=== PATIENT | female | born 1960 | race Caucasian/White ===

== ENCOUNTER 2019-09-28 11:21 | Outpatient (CLI) | payer MEDICARE, SELFPAY ==
[2019-09-28 12:24] LABS: Basophils # 0.1 10^3/uL (0.0-0.1); Basophils % 1.3 %; Eosinophils # 0.4 10^3/uL (0.0-0.8); Eosinophils % 5.5 %; Hematocrit 33.3 % (37.0-47.0); Hemoglobin 8.9 g/dL (11.5-15.3); Lymphocytes # 1.2 10^3/uL (0.8-4.8); Mean Corpuscular HGB Conc 26.7 g/dL (30.0-36.0); Mean Corpuscular Hemoglobin 19.1 pg (28.0-34.0); Mean Corpuscular Volume 71.6 fL (81-99); Mean Platelet Volume 10.3 fL (7.4-10.4); Monocytes # 0.5 10^3/uL (0.2-0.9); Monocytes % 8.1 %; Neutrophils # 4.5 10^3/uL (1.8-7.7); Neutrophils % 66.7 %; Nucleated Red Blood Cells % 0 %; Platelet Count 386 10^3/cmm (130-400); Red Blood Count 4.65 10^6/uL (4.1-5.3); Red Cell Distribution Width 19.2 % (12.1-15.1); White Blood Count 6.7 10^3/uL (4.0-10.0)
== END 2019-09-28 11:22 | disposition home or self-care (01) ==
LOC: LAB 11:40
PROVIDERS: Family Provider Family Medicine; PCP Family Medicine; Visit Provider Family Medicine
DX: D50.0 Iron deficiency anemia secondary to blood loss (chronic) (principal)
CPT/HCPCS: 85025

== ENCOUNTER 2019-09-29 10:30 | Outpatient (CLI) | payer MEDICARE, SELFPAY ==
[2019-09-29 11:48] LABS: Ferritin 5 ng/mL (15-150); Iron 36 ug/dL (37-145); Percent Saturation 9.5 % (20-50); Total Iron Binding Capacity 378 mg/dL; Unsaturated Iron Binding 342 ug/dL (112-347)
== END 2019-09-29 10:31 | disposition home or self-care (01) ==
PROVIDERS: Family Provider Family Medicine; PCP Family Medicine; Visit Provider Family Medicine
DX: D50.9 Iron deficiency anemia, unspecified (principal)
CPT/HCPCS: 82728; 83540; 83550

== ENCOUNTER 2019-10-16 12:51 | Outpatient (CLI) | payer MEDICARE, SELFPAY ==
[2019-10-17 13:30] LABS: Basophils # 0.1 10^3/uL (0.0-0.1); Basophils % 1.1 %; Eosinophils # 0.4 10^3/uL (0.0-0.8); Hematocrit 38.2 % (37.0-47.0); Hemoglobin 9.9 g/dL (11.5-15.3); Lymphocytes # 1.3 10^3/uL (0.8-4.8); Lymphocytes % 18.5 %; Mean Corpuscular HGB Conc 25.9 g/dL (30.0-36.0); Mean Corpuscular Hemoglobin 19.4 pg (28.0-34.0); Mean Corpuscular Volume 74.8 fL (81-99); Monocytes # 0.5 10^3/uL (0.2-0.9); Monocytes % 6.5 %; Neutrophils # 4.9 10^3/uL (1.8-7.7); Neutrophils % 68.1 %; Nucleated Red Blood Cells % 0 %; Platelet Count 445 10^3/cmm (130-400); Red Blood Count 5.11 10^6/uL (4.1-5.3); Red Cell Distribution Width 21.1 % (12.1-15.1); White Blood Count 7.3 10^3/uL (4.0-10.0)
[2019-10-17 21:49] LABS: Absolute Eosinophils 0.1 10^3/cmm (0.0-0.7); Absolute Segmented Neutrophil 5.1 10/cmm (1.6-7.1); Eosinophils 2 %; Lymphocytes 18 %; Monocytes Absolute 0.1 10^3/cmm (0.1-0.6); Platelet Estimate Increased (Normal); Segmented Neutrophils 71 %; Total Cells Counted 100 (0-100)
[2019-10-17 21:50] LABS: Anisocytosis 1+; Giant Platelets Trace; Polychromasia 1+
== END 2019-10-16 12:52 | disposition home or self-care (01) ==
LOC: LAB 12:58
PROVIDERS: Family Provider Family Medicine; PCP Family Medicine; Visit Provider Internal Medicine Cardiovascular Disease
DX: Z79.01 Long term (current) use of anticoagulants (principal); Z95.2 Presence of prosthetic heart valve
CPT/HCPCS: 85007; 85025; 85027; 85610

== ENCOUNTER 2019-10-16 13:31 | Outpatient (CLI) | payer MEDICARE, SELFPAY ==
[2019-10-17 14:08] LABS: Hematocrit 38.2 % (37.0-47.0); Hemoglobin 9.9 g/dL (11.5-15.3); Mean Corpuscular HGB Conc 25.9 g/dL (30.0-36.0); Mean Corpuscular Hemoglobin 19.4 pg (28.0-34.0); Mean Corpuscular Volume 74.8 fL (81-99); Platelet Count 445 10^3/cmm (130-400); Red Blood Count 5.11 10^6/uL (4.1-5.3); Red Cell Distribution Width 21.1 % (12.1-15.1); White Blood Count 7.3 10^3/uL (4.0-10.0)
[2019-10-17 16:06] LABS: Absolute Eosinophils 0.2 10^3/cmm (0.0-0.7); Eosinophils 3 %; Lymphocytes 22 %; Monocytes Absolute 0.4 10^3/cmm (0.1-0.6); Segmented Neutrophils 69 %; Total Cells Counted 100 (0-100)
[2019-10-17 16:07] LABS: Anisocytosis 1+; Giant Platelets Trace; Ovalocytes 1+; Platelet Estimate Increased (Normal); Poikilocytosis 1+
== END 2019-10-16 13:32 | disposition home or self-care (01) ==
LOC: LAB 10-17 13:34
PROVIDERS: Family Provider Family Medicine; PCP Family Medicine; Visit Provider Family Medicine
DX: D50.8 Other iron deficiency anemias (principal)
CPT/HCPCS: 85007; 85027

== ENCOUNTER 2019-11-22 10:25 | Outpatient (CLI) | payer MEDICARE, SELFPAY ==
[2019-11-22 11:58] LABS: Basophils % 0.9 %; Eosinophils # 0.2 10^3/uL (0.0-0.8); Eosinophils % 5.2 %; Hematocrit 36.8 % (37.0-47.0); Hemoglobin 10.2 g/dL (11.5-15.3); Lymphocytes # 0.5 10^3/uL (0.8-4.8); Lymphocytes % 11.5 %; Mean Corpuscular HGB Conc 27.7 g/dL (30.0-36.0); Mean Corpuscular Hemoglobin 19.7 pg (28.0-34.0); Mean Corpuscular Volume 70.9 fL (81-99); Mean Platelet Volume 9.7 fL (7.4-10.4); Monocytes # 0.4 10^3/uL (0.2-0.9); Monocytes % 10.3 %; Neutrophils % 71.4 %; Nucleated Red Blood Cells % 0 %; Platelet Count 301 10^3/cmm (130-400); Red Blood Count 5.19 10^6/uL (4.1-5.3); Red Cell Distribution Width 22.3 % (12.1-15.1); White Blood Count 4.3 10^3/uL (4.0-10.0)
[2019-11-22 12:29] LABS: INR 3.23 (0.8-1.2)
== END 2019-11-22 10:26 | disposition home or self-care (01) ==
LOC: LAB 10:30
PROVIDERS: Family Provider Family Medicine; PCP Family Medicine; Visit Provider Family Medicine
DX: Z79.01 Long term (current) use of anticoagulants (principal); D50.8 Other iron deficiency anemias; Z95.2 Presence of prosthetic heart valve
CPT/HCPCS: 85025; 85610

== ENCOUNTER 2019-12-28 10:49 | Outpatient (CLI) | payer MEDICARE, SELFPAY ==
[2019-12-28 11:50] LABS: INR 4.75 (0.8-1.2)
== END 2019-12-28 10:50 | disposition home or self-care (01) ==
LOC: LAB 10:49
PROVIDERS: Family Provider Family Medicine; PCP Physician Assistant; Visit Provider Internal Medicine Cardiovascular Disease
DX: Z95.2 Presence of prosthetic heart valve (principal); Z79.01 Long term (current) use of anticoagulants
CPT/HCPCS: 36415; 85610

== ENCOUNTER 2020-01-05 10:57 | Outpatient (CLI) | payer MEDICARE, SELFPAY ==
[2020-01-05 11:38] LABS: INR 3.66 (0.8-1.2)
== END 2020-01-05 10:58 | disposition home or self-care (01) ==
LOC: LAB 11:03
PROVIDERS: Family Provider Family Medicine; PCP Physician Assistant; Visit Provider Internal Medicine Cardiovascular Disease
DX: Z95.2 Presence of prosthetic heart valve (principal); Z79.01 Long term (current) use of anticoagulants
CPT/HCPCS: 36415; 85610

== ENCOUNTER 2020-01-11 10:49 | Outpatient (CLI) | payer MEDICARE, SELFPAY ==
[2020-01-11 13:20] LABS: INR 3.07 (0.8-1.2)
== END 2020-01-11 10:50 | disposition home or self-care (01) ==
LOC: LAB 10:49
PROVIDERS: Family Provider Family Medicine; PCP Physician Assistant; Visit Provider Internal Medicine Cardiovascular Disease
DX: Z95.2 Presence of prosthetic heart valve (principal); Z79.01 Long term (current) use of anticoagulants
CPT/HCPCS: 36415; 85610

== ENCOUNTER 2020-01-25 11:06 | Outpatient (CLI) | payer MEDICARE, SELFPAY ==
[2020-01-25 11:46] LABS: INR 3.55 (0.8-1.2)
== END 2020-01-25 11:07 | disposition home or self-care (01) ==
LOC: LAB 11:10
PROVIDERS: PCP Physician Assistant; Visit Provider Internal Medicine Cardiovascular Disease
DX: Z95.2 Presence of prosthetic heart valve (principal); Z79.01 Long term (current) use of anticoagulants
CPT/HCPCS: 36415; 85610

== ENCOUNTER 2020-02-08 13:23 | Outpatient (CLI) | payer MEDICARE, SELFPAY | END 2020-02-08 13:24 | disposition home or self-care (01) | LOC: LAB 13:23 | PROVIDERS: PCP Physician Assistant; Visit Provider Internal Medicine Cardiovascular Disease | DX: Z95.2 Presence of prosthetic heart valve (principal); Z79.01 Long term (current) use of anticoagulants | CPT/HCPCS: 36415; 85610 ==

== ENCOUNTER 2020-03-07 11:15 | Outpatient (CLI) | payer MEDICARE, SELFPAY | END 2020-03-07 11:16 | disposition home or self-care (01) | LOC: LAB 11:22 | PROVIDERS: PCP Physician Assistant; Visit Provider Internal Medicine Cardiovascular Disease | DX: Z95.2 Presence of prosthetic heart valve (principal); Z79.01 Long term (current) use of anticoagulants | CPT/HCPCS: 85610 ==

== ENCOUNTER 2020-05-16 12:48 | Outpatient (CLI) | payer MEDICARE, SELFPAY ==
[2020-05-16 13:36] LABS: INR 1.22 (0.8-1.2)
== END 2020-05-16 12:49 | disposition home or self-care (01) ==
LOC: LAB 12:53
PROVIDERS: PCP Physician Assistant; Visit Provider Internal Medicine Cardiovascular Disease
DX: Z95.2 Presence of prosthetic heart valve (principal); Z79.01 Long term (current) use of anticoagulants
CPT/HCPCS: 36415; 85610

== ENCOUNTER 2020-05-20 08:32 | Outpatient (CLI) | payer MEDICARE, SELFPAY | END 2020-05-20 08:33 | disposition home or self-care (01) | LOC: LAB 08:34 | PROVIDERS: PCP Physician Assistant; Visit Provider Internal Medicine Cardiovascular Disease | DX: Z95.2 Presence of prosthetic heart valve (principal); Z79.01 Long term (current) use of anticoagulants | CPT/HCPCS: 36415; 85610 ==

== ENCOUNTER 2020-05-29 11:27 | Outpatient (RCR) | payer MEDICARE, SELFPAY ==
[2020-05-23 09:56] LABS: INR 3.02 (0.8-1.2)
[2020-05-29 12:32] LABS: INR 2.72 (0.8-1.2)
== END 2020-06-19 23:59 | disposition home or self-care (01) ==
LOC: LAB 11:27
PROVIDERS: PCP Physician Assistant; Visit Provider Internal Medicine Cardiovascular Disease
DX: Z95.2 Presence of prosthetic heart valve (principal); Z79.01 Long term (current) use of anticoagulants
CPT/HCPCS: 36415; 85610

== ENCOUNTER 2020-06-27 11:01 | Outpatient (RCR) | payer MEDICARE, SELFPAY ==
[2020-06-27 14:08] LABS: INR 2.86 (0.8-1.2)
== END 2020-07-20 23:59 | disposition home or self-care (01) ==
LOC: LAB 11:01
PROVIDERS: PCP Physician Assistant; Visit Provider Internal Medicine Cardiovascular Disease
DX: Z95.2 Presence of prosthetic heart valve (principal); Z79.01 Long term (current) use of anticoagulants
CPT/HCPCS: 85610

== ENCOUNTER 2020-07-25 10:00 | Outpatient (RCR) | payer MEDICARE, SELFPAY ==
[2020-07-25 10:42] LABS: INR 2.41 (0.8-1.2)
== END 2020-08-19 23:59 | disposition home or self-care (01) ==
LOC: LAB 10:00
PROVIDERS: PCP Physician Assistant; Visit Provider Internal Medicine Cardiovascular Disease
DX: Z95.2 Presence of prosthetic heart valve (principal); Z79.01 Long term (current) use of anticoagulants
CPT/HCPCS: 36415; 85610

== ENCOUNTER 2020-08-27 11:29 | Outpatient (RCR) | payer MEDICARE, OTHER, SELFPAY ==
[2020-08-27 13:02] LABS: INR 2.69 (0.8-1.2)
[2020-08-27 13:18] LABS: Anion Gap 15.3 (5-19); Blood Urea Nitrogen 23 mg/dL (8-23); Calcium 9.3 mg/dL (8.5-10.5); Carbon Dioxide 25 mmol/L (22-29); Chloride 103 mmol/L (98-107); Glomerular Filtration Rate 45.5 mL/min (90-130); Glucose 96 mg/dL (65-115); NT Pro B Type Natriuretic Pept 863 pg/mL (0-125); Osmolality Calculated 292 mOsm/kg (285-295); Potassium 4.3 mmol/L (3.5-5.1); Sodium 139 mmol/L (136-145)
== END 2020-09-19 23:59 | disposition home or self-care (01) ==
LOC: LAB 11:29
PROVIDERS: PCP Physician Assistant; Visit Provider Internal Medicine Cardiovascular Disease
DX: I50.32 Chronic diastolic (congestive) heart failure (principal); Z95.2 Presence of prosthetic heart valve; R60.0 Localized edema; I48.91 Unspecified atrial fibrillation; D50.8 Other iron deficiency anemias
CPT/HCPCS: 80048; 83880; 85610

== ENCOUNTER 2020-10-17 10:27 | Outpatient (RCR) | payer MEDICARE, OTHER, SELFPAY ==
[2020-10-07 10:26] LABS: INR 2.04 (0.8-1.2)
[2020-10-11 12:54] LABS: INR 2.17 (0.8-1.2)
== END 2020-10-20 23:59 | disposition home or self-care (01) ==
LOC: LAB 10:27
PROVIDERS: PCP Physician Assistant; Visit Provider Internal Medicine Cardiovascular Disease
DX: Z95.2 Presence of prosthetic heart valve (principal); Z79.01 Long term (current) use of anticoagulants
CPT/HCPCS: 36415; 85610

== ENCOUNTER 2020-11-11 11:22 | Outpatient (RCR) | payer MEDICARE, OTHER, SELFPAY ==
[2020-10-21 14:35] LABS: INR 2.15 (0.8-1.2)
[2020-11-01 11:23] LABS: INR 2.52 (0.8-1.2)
[2020-11-11 12:07] LABS: INR 2.75 (0.8-1.2)
== END 2020-11-17 23:59 | disposition home or self-care (01) ==
LOC: LAB 11:22
PROVIDERS: PCP Physician Assistant; Visit Provider Internal Medicine Cardiovascular Disease
DX: Z95.2 Presence of prosthetic heart valve (principal); Z79.01 Long term (current) use of anticoagulants; Z01.812 Encounter for preprocedural laboratory examination
CPT/HCPCS: 36415; 85610; 87635

== ENCOUNTER → 2020-11-13 11:30 | Outpatient (BNVA) | payer MEDICARE, OTHER, SELFPAY | PROVIDERS: PCP Physician Assistant; Visit Provider Internal Medicine Critical Care Medicine | DX: R06.02 Shortness of breath (principal) | CPT/HCPCS: 87635 ==

== ENCOUNTER 2020-11-19 08:58 | Outpatient (CLI) | payer MEDICARE, OTHER, SELFPAY ==
--- NOTE | 2020-11-19 14:00 | PFTS_ITS ---
Date of Study:11/19/20 Date of Dictation: 11/22/2020 MECHANICS: Prebronchodilator forced vital capacity (FVC) is reduced. Prebronchodilator forced expiratory volume in one second (FEV1) is reduced 62%. FEV1/FVC is normal. No postbronchodilator study. FLOW VOLUME LOOP: Normal . LUNG VOLUMES: Total lung capacity (TLC) is reduced 74%. Residual volume (RV) is normal. DIFFUSING CAPACITY FOR CARBON MONOXIDE: Moderately reduced 46% . INTERPRETATION: The spirometry and is a low TLC are consistent with restrictive lung disease. Moderate gas transfer defect. please correlate clinically MTDD
== END 2020-11-19 08:59 | disposition home or self-care (01) ==
LOC: RT 08:58
PROVIDERS: PCP Physician Assistant; Visit Provider Internal Medicine Critical Care Medicine
DX: R06.02 Shortness of breath (principal)
CPT/HCPCS: 94010; 94726; 94729

== ENCOUNTER 2020-11-25 09:42 | Outpatient (RCR) | payer MEDICARE, OTHER, SELFPAY ==
[2020-11-25 10:25] LABS: Basophils # 0.1 10^3/uL (0.0-0.1); Basophils % 1.6 %; Eosinophils # 0.4 10^3/uL (0.0-0.8); Eosinophils % 6.2 %; Hematocrit 37.1 % (37.0-47.0); Hemoglobin 10.1 g/dL (11.5-15.3); Lymphocytes # 1.3 10^3/uL (0.8-4.8); Lymphocytes % 20.7 %; Mean Corpuscular HGB Conc 27.2 g/dL (30.0-36.0); Mean Corpuscular Hemoglobin 19.8 pg (28.0-34.0); Mean Corpuscular Volume 72.9 fL (81-99); Mean Platelet Volume 10.2 fL (7.4-10.4); Monocytes # 0.5 10^3/uL (0.2-0.9); Monocytes % 8.1 %; Neutrophils # 3.86 10^3/uL (1.8-7.7); Neutrophils % 62.7 %; Nucleated Red Blood Cells % 0 %; Platelet Count 324 10^3/cmm (130-400); Red Blood Count 5.09 10^6/uL (4.1-5.3); Red Cell Distribution Width 19.2 % (12.1-15.1); White Blood Count 6.2 10^3/uL (4.0-10.0)
[2020-11-25 10:32] LABS: INR 2.95 (0.8-1.2)
[2020-11-25 10:42] LABS: Iron 19 ug/dL (37-145); Total Iron Binding Capacity 373 mcg/dl; Unsaturated Iron Binding 354 ug/dL (112-347)
== END 2020-12-18 23:59 | disposition home or self-care (01) ==
LOC: LAB 09:42
PROVIDERS: Internal Medicine Critical Care Medicine; PCP Physician Assistant; Visit Provider Internal Medicine Cardiovascular Disease
DX: I50.32 Chronic diastolic (congestive) heart failure (principal); R60.0 Localized edema; R06.00 Dyspnea, unspecified; I48.91 Unspecified atrial fibrillation; Z95.2 Presence of prosthetic heart valve; Z79.01 Long term (current) use of anticoagulants
CPT/HCPCS: 36415; 83540; 83550; 85025; 85610

== ENCOUNTER 2020-12-03 10:25 | Outpatient (CLI) | payer MEDICARE, OTHER, SELFPAY ==
--- NOTE | 2020-12-03 10:45 | FL_ITS ---
WS: [id number] FLUOROSCOPIC GUIDED SNIFF TEST INDICATION: SHORTNESS OF BREATH Fluoroscopy time 0.6 FINDINGS: Normal excursion of the hemidiaphragms with inspiration and expiration. No evidence of phre venu nerve paralysis. Mild elevation right hemidiaphragm on resting. Sternotomy. AVR. Outside CT dated August 19, 2020. Multiple large hepatic cysts partially visualized similar in appe arance to CT chest .Largest right hepatic cyst measures 6.9 x 6.8 x 7.3 cm Slightly increased in size compared to when it measured 6.5 x 6.1 x 6.9 cm. FL/FL sniff test [id number] IMPRESSION: Normal sniff test
== END 2020-12-03 10:26 | disposition home or self-care (01) ==
LOC: RAD 10:27
PROVIDERS: PCP Physician Assistant; Visit Provider Internal Medicine Critical Care Medicine
DX: R06.02 Shortness of breath (principal)
CPT/HCPCS: 76000

== ENCOUNTER 2020-12-03 11:00 | Outpatient (CLI) | payer MEDICARE, OTHER, SELFPAY | END 2020-12-03 11:01 | disposition home or self-care (01) | PROVIDERS: PCP Physician Assistant; Visit Provider Internal Medicine Critical Care Medicine | DX: J98.4 Other disorders of lung (principal); R06.02 Shortness of breath | CPT/HCPCS: 76000; 94762 ==

== ENCOUNTER 2020-12-05 08:21 | Outpatient (CLI) | payer MEDICARE, OTHER, SELFPAY ==
[2020-12-05 09:18] LABS: Basophils # 0.1 10^3/uL (0.0-0.1); Basophils % 1.5 %; Eosinophils # 0.6 10^3/uL (0.0-0.8); Eosinophils % 7.4 %; Hematocrit 38.5 % (37.0-47.0); Hemoglobin 10.3 g/dL (11.5-15.3); Lymphocytes # 1.3 10^3/uL (0.8-4.8); Lymphocytes % 17.5 %; Mean Corpuscular HGB Conc 26.8 g/dL (30.0-36.0); Mean Corpuscular Hemoglobin 19.8 pg (28.0-34.0); Mean Corpuscular Volume 73.9 fL (81-99); Mean Platelet Volume 10.3 fL (7.4-10.4); Monocytes # 0.6 10^3/uL (0.2-0.9); Neutrophils # 4.82 10^3/uL (1.8-7.7); Neutrophils % 65.2 %; Nucleated Red Blood Cells % 0 %; Platelet Count 374 10^3/cmm (130-400); Red Blood Count 5.21 10^6/uL (4.1-5.3); Red Cell Distribution Width 19.5 % (12.1-15.1); White Blood Count 7.4 10^3/uL (4.0-10.0)
--- NOTE | 2020-12-05 18:42 | ONC FU_ITS ---
Dr. Valerio follow up note Patient: Bree Hendricks Unit #: [id number]: 1960 Dicatated By: Panfilo Valerio M.D.Date of Visit:Dec 05, 2020 Onc Med Follow-up/Prog Note History of Present Illness: Ms. Bree Hendricks, is a 60-year-old female with a history of iron deficiency anemia about 10 to 15 years ago, as per patient at that time she was given oral iron which she took for 1 month with that her anemia resolved. And then again 1 time her stools were positive for occult blood, Dr. Bowling give her prescription for antibiotic with that her stool cleared., Since then no issues with her blood/hemoglobin until recently when her follow-up labs done on November 25, 2020 shows progressive anemia, her hemoglobin was 10.1 g with hematocrit 37.1 MCV 72.9 white blood count 6.2 platelets 324,000, anemia work-up showed iron saturation 5%, iron 19, TIBC 373 INR 2.95 patient is on Coumadin for history of A. fib and mitral valve replacement. Patient denies any melena or hematochezia, denies any hemoptysis or hematemesis denies any dysuria or hematuria denies any jaundice denies any night sweats denies any weight loss denies any recurrent fever denies any peripheral lymphadenopathy or abdominal fullness., Denies any palpitation or shortness of breath at rest Her past medical history significant for A. fib, aortic valve replacement, mitral valve replacement, cholecystectomy, hypothyroidism Patient is a former smoker, denies alcohol use Medications: Coumadin (3 mg) Tablet Oral Take as Directed, Furosemide 1 Tablet (of 20 mg) Oral daily, Levo-T 1 Tablet (of 100 mcg) Oral every am, Potassium Chloride ER (20 meq) Tablet, controlled release Oral Take as Directed Allergies: Amoxicillin and Cephalexin. Review of Systems: Review of Systems is not available for this patient. Vital Signs: Performed on Dec 05, 2020 11:17 Weight - 196 lbs (HIGH) BSA - sq.m BMI - 0.00 (LOW) Temperature - 96.6 F (LOW) Pulse - 107 /min (HIGH) Respiration - 18 /min BP - 182/72 mm(hg) (HIGH) O2 Sat - 96 % Pain - 0 Fatigue - 6 Performance Status: 1 - No physically strenuous activity, but ambulatory and able to carry out light or sedentary work (e.g. office work, light house work). (ECOG) Physical Examination: ENMT - No mouth sores, no thrush, no jaundice, Respiratory - Poor air entry otherwise clear, Cardiovascular - Irregular rate and rhythm, Abdomen - Soft, bowel sounds present, Extremities - No visible edema. Lab/Imaging: Most recent lab results are not available for this patient. Impression: Microcytic hypochromic anemia due to iron deficiency etiology probably multifactorial including chronic GI blood loss patient is on anticoagulation or iron malabsorption Atrial fibrillation, on Coumadin History of aortic valve/mitral valve replacement Plan: With patient regarding her labs white blood count 7.4 hemoglobin 10.3 hematocrit 38.5 platelets 374,000 MCV 73.9 Clinically, patient doing reasonably well, now with well compensated moderate iron deficiency anemia, will consider oral iron twice a day and then she will return to clinic in 1 month with CBC and iron studies In the meantime we will refer her to Dr. Lewis for EGD and colonoscopy to rule out GI pathology and source of chronic bleeding, patient never had GI endoscopic evaluation done in the past. Return to clinic in 1 month with CBC and iron studies Signed By: Panfilo Valerio M.D. <<Signature on File>>
== END 2020-12-05 08:22 | disposition home or self-care (01) ==
PROVIDERS: PCP Physician Assistant; Visit Provider Internal Medicine Hematology & Oncology
DX: D50.0 Iron deficiency anemia secondary to blood loss (chronic) (principal); I48.91 Unspecified atrial fibrillation; Z95.2 Presence of prosthetic heart valve; Z79.01 Long term (current) use of anticoagulants; Z79.899 Other long term (current) drug therapy
CPT/HCPCS: 36415; 85025; 99205

== ENCOUNTER 2020-12-24 10:21 | Outpatient (RCR) | payer MEDICARE, OTHER, SELFPAY ==
[2020-12-24 11:02] LABS: INR 2.54 (0.8-1.2)
[2020-12-24 11:17] LABS: Thyroid Stimulating Hormone 3.27 uIU/mL (0.27-4.20)
== END 2021-01-17 23:59 | disposition home or self-care (01) ==
LOC: LAB 10:21
PROVIDERS: Internal Medicine Cardiovascular Disease; PCP Physician Assistant; Visit Provider Physician Assistant
DX: E03.9 Hypothyroidism, unspecified (principal); Z95.2 Presence of prosthetic heart valve; Z79.01 Long term (current) use of anticoagulants
CPT/HCPCS: 36415; 84443; 85610

== ENCOUNTER 2021-01-16 11:05 | Outpatient (CLI) | payer MEDICARE, OTHER, SELFPAY ==
[2021-01-16 11:42] LABS: Basophils # 0.1 10^3/uL (0.0-0.1); Basophils % 1.3 %; Eosinophils # 0.3 10^3/uL (0.0-0.8); Hematocrit 44.4 % (37.0-47.0); Hemoglobin 13.4 g/dL (11.5-15.3); Lymphocytes # 1.4 10^3/uL (0.8-4.8); Lymphocytes % 18.1 %; Mean Corpuscular HGB Conc 30.2 g/dL (30.0-36.0); Mean Corpuscular Hemoglobin 24.4 pg (28.0-34.0); Mean Corpuscular Volume 80.9 fL (81-99); Mean Platelet Volume 10.2 fL (7.4-10.4); Monocytes # 0.6 10^3/uL (0.2-0.9); Neutrophils # 5.08 10^3/uL (1.8-7.7); Neutrophils % 68.2 %; Nucleated Red Blood Cells % 0 %; Platelet Count 308 10^3/cmm (130-400); Red Blood Count 5.49 10^6/uL (4.1-5.3); White Blood Count 7.5 10^3/uL (4.0-10.0)
[2021-01-16 12:31] LABS: Ferritin 33 ng/mL (15-150); Iron 44 ug/dL (37-145); Percent Saturation 12.9 % (20-50); Total Iron Binding Capacity 341 mcg/dl; Unsaturated Iron Binding 297 ug/dL (112-347); Vitamin B12 522 pg/mL (232-1245)
[2021-01-16 12:43] LABS: Folate Level 9.1 ng/mL (4.8-37.3)
[2021-01-16 12:46] LABS: Add RBC Morph No; Slide Review Slide Review Perform
--- NOTE | 2021-01-21 10:06 | ONC FU_ITS ---
Dr. aVlerio follow up note Patient: Bree Hendricks Unit #: [id number]: 1960 Dicatated By: Panfilo Valerio M.D.Date of Visit:Jan 16, 2021 Onc Med Follow-up/Prog Note History of Present Illness: Ms. Bree Hendricks, is a 60-year-old female with a history of iron deficiency anemia about 10 to 15 years ago, as per patient at that time she was given oral iron which she took for 1 month with that her anemia resolved. And then again 1 time her stools were positive for occult blood, Dr. Bowilng give her prescription for antibiotic with that her stool cleared., Since then no issues with her blood/hemoglobin until recently when her follow-up labs done on November 25, 2020 shows progressive anemia, her hemoglobin was 10.1 g with hematocrit 37.1 MCV 72.9 white blood count 6.2 platelets 324,000, anemia work-up showed iron saturation 5%, iron 19, TIBC 373 INR 2.95 patient is on Coumadin for history of A. fib and mitral valve replacement. Patient denies any melena or hematochezia, denies any hemoptysis or hematemesis denies any dysuria or hematuria denies any jaundice denies any night sweats denies any weight loss denies any recurrent fever denies any peripheral lymphadenopathy or abdominal fullness., Denies any palpitation or shortness of breath at rest Her past medical history significant for A. fib, aortic valve replacement, mitral valve replacement, cholecystectomy, hypothyroidism Patient is a former smoker, denies alcohol use Came for follow-up, denies any specific complaints, no fever chills, no nausea or vomiting, no diarrhea constipation, tolerating oral iron well. No melena or hematochezia, no hemoptysis or hematemesis, no hematuria, patient was referred to Dr. Lewis for colonoscopy and EGD, patient declined because she is on Coumadin, as per patient she did talk to her senior technical manager, who said as long as no biopsy or polypectomy is considered she can proceed with colonoscopy while on anticoagulation Medications: Coumadin (3 mg) Tablet Oral Take as Directed, Furosemide 1 Tablet (of 20 mg) Oral daily, Levo-T 1 Tablet (of 100 mcg) Oral every am, Potassium Chloride ER (20 meq) Tablet, controlled release Oral Take as Directed Allergies: Amoxicillin and Cephalexin. Review of Systems: Review of Systems is not available for this patient. Vital Signs: Performed on Jan 16, 2021 12:50 Weight - 195.6 lbs (LOW) BSA - 0.00 sq.m BMI - 0.00 Temperature - 98.0 F (LOW) Pulse - 80 /min Respiration - 18 /min BP - 130/90 mm(hg) O2 Sat - 96 % Pain - 0 Fatigue - 4 Performance Status: 0 - Fully active, able to carry on all predisease activities without restrictions. (ECOG) Physical Examination: ENMT - No mouth sores, no thrush, no jaundice, Respiratory - Lungs are clear to auscultation, Cardiovascular - Regular rate and rhythm of heart, Abdomen - , Soft, bowel sounds present, Extremities - No visible edema. Lab/Imaging: Most recent lab results are not available for this patient. Impression: Microcytic hypochromic anemia due to iron deficiency etiology probably multifactorial including chronic GI blood loss patient is on anticoagulation or iron malabsorption On oral iron Atrial fibrillation, on Coumadin History of aortic valve/mitral valve replacement Plan: Discussed with patient regarding her labs white blood count 7.5 hemoglobin 13.4 g compared to 10.3 g on December 05, 2020 hematocrit 44.4 platelets 308,000 iron studies shows iron saturation 12.9 compared to 5% previously, iron 44 compared to 19 previously and ferritin 33 Clinically, patient is doing well, tolerating oral iron well, her follow-up lab work-up shows excellent response to oral iron her hemoglobin has improved to 13.4 g compared to 10.3 g previously and her iron studies shows improvement in iron stores as well, will continue with oral iron and then she will return to clinic in 1 month with CBC and iron studies to ensure improvement in hemoglobin as well as iron stores Patient was advised to consider EGD and colonoscopy to rule out any GI malignancy causing chronic GI blood loss, if normal, we may consider capsule endoscopy to rule out small bowel AVMs causing chronic blood loss. Signed By: Panfilo Valerio M.D. <<Signature on File>>
== END 2021-01-16 11:06 | disposition home or self-care (01) ==
PROVIDERS: PCP Physician Assistant; Visit Provider Internal Medicine Hematology & Oncology
DX: D50.0 Iron deficiency anemia secondary to blood loss (chronic) (principal); D51.9 Vitamin B12 deficiency anemia, unspecified; K90.9 Intestinal malabsorption, unspecified; I48.20 Chronic atrial fibrillation, unspecified; I08.0 Rheumatic disorders of both mitral and aortic valves; Z79.899 Other long term (current) drug therapy
CPT/HCPCS: 36415; 82607; 82728; 82746; 83540; 83550; 85025; 99214

== ENCOUNTER 2021-01-23 09:07 | Outpatient (RCR) | payer MEDICARE, OTHER, SELFPAY ==
[2021-01-23 09:57] LABS: INR 2.88 (0.8-1.2)
== END 2021-02-17 23:59 | disposition home or self-care (01) ==
LOC: LAB 09:07
PROVIDERS: PCP Physician Assistant; Visit Provider Internal Medicine Cardiovascular Disease
DX: I50.32 Chronic diastolic (congestive) heart failure (principal); R60.0 Localized edema; R06.00 Dyspnea, unspecified; I48.91 Unspecified atrial fibrillation; Z95.2 Presence of prosthetic heart valve
CPT/HCPCS: 36415; 85610

== ENCOUNTER 2021-03-12 10:07 | Outpatient (RCR) | payer MEDICARE, OTHER, SELFPAY ==
[2021-02-24 11:06] LABS: INR 2.43 (0.8-1.2)
[2021-03-12 10:54] LABS: INR 2.97 (0.8-1.2)
== END 2021-03-19 23:59 | disposition home or self-care (01) ==
LOC: LAB 10:07
PROVIDERS: PCP Physician Assistant; Visit Provider Internal Medicine Cardiovascular Disease
DX: Z79.01 Long term (current) use of anticoagulants (principal); Z95.2 Presence of prosthetic heart valve
CPT/HCPCS: 36415; 85610

== ENCOUNTER → 2021-03-28 11:49 | Outpatient (BNVA) | payer MEDICARE, OTHER, SELFPAY | PROVIDERS: PCP Physician Assistant; Visit Provider Surgery | DX: Z11.52 Encounter for screening for COVID-19 (principal); L98.9 Disorder of the skin and subcutaneous tissue, unspecified | CPT/HCPCS: 87635 ==

== ENCOUNTER 2021-04-02 07:25 | Day surgery (SDC) | payer MEDICARE, OTHER, SELFPAY ==
[2021-04-01 17:33] VITALS: BMI 28.7
[2021-04-02] VITALS (8 sets, daily range): BP systolic 104–142; BP diastolic 57–78; PULSE 62–82; RESP 14–18; TEMP 36.1–36.9; O2SAT 92–96
[2021-04-02] MEDS: sodium chloride 0.9% 1,000 ML 30 ML IV (08:31)
[2021-04-02 08:44] LABS: INR 1.49 (0.8-1.2)
[2021-04-02 08:55] LABS: Anion Gap 12.9 (5-19); Blood Urea Nitrogen 10 mg/dL (8-23); Calcium 8.6 mg/dL (8.5-10.5); Carbon Dioxide 24 mmol/L (22-29); Chloride 110 mmol/L (98-107); Creatinine Clr Calc Pharmacy 58.6243; Glomerular Filtration Rate 56.2 mL/min (90-130); Glucose 118 mg/dL (65-115); Osmolality Calculated 296 mOsm/kg (285-295); Potassium 3.9 mmol/L (3.5-5.1); Sodium 143 mmol/L (136-145)
--- NOTE | 2021-04-02 10:09 | ANES.PREANE2 ---
Pre-Anesthetic Assessment Pre-Anesthetic Assessment: Height/Weight: Height 1.64 m Weight 77.111 kg Temp Pulse Resp BP Pulse Ox 98.5 F 82 18 141/77 95 04/02/21 08:06 04/02/21 08:06 04/02/21 08:06 04/02/21 08:06 04/02/21 08:06 Preop Diagnosis: panendoscopy Proposed Procedure: Operation Date: 04/02/21 09:00 Proposed Procedures p Colonoscopy(Not Applicable) - Wilder Lewis MD s EXCISION OF SKIN LESION OF THIGH 63335 L98.9(Bilateral) - Wilder Lewis MD Was Beta Isabel taken within 24 hours: N/A Was Clonidine taken within 24 hours: N/A Last intake: Intake Last Liquid Date 04/01/21 Last Liquid Time 22:30 Last Solid Date 04/01/21 Last Solid Time 21:00 Social: Social History: No alcohol and No tobacco Exam: Pre-Anes Outpt Exam: alert, oriented x 3, clear to auscultation bilaterally and regular rate & rhythm Airway: Submandibular: WNL Cervical ROM: WNL MP: 3 Dentition: Full CV/HEM: CV/HEM: Anemia Comments: h/o AVR and MVR (related to rheumatic dz) Musc/skel: Musc/skel: Weakness Comments: Left weakness Neuropsych: Neuropsych: CVA and Deficit Anesthetic Plan: ASA status: 3 Anesthesia: MAC Risk of > 500 ml blood loss (7ml/kg in children): No Meds/Allergies Current Medications: Current Medications Generic Name Dose Route Start Last Admin Trade Name Freq PRN Reason Stop Dose Admin Sodium Chloride 1,000 mls @ 30 ml s/hr 04/02/21 07:45 04/02/21 08:31 Sodium Chloride 0.9% IV 04/03/21 07:44 30 mls/hr .Q24H MEREDITH Administration PFSH Anesthesia PFSH: Medical History (Updated 12/31/20 @ 16:01 by Wilder Lewis MD) Afib CHF (congestive heart failure) CVA (cerebral vascular accident) Hypothyroidism Iron deficiency anemia secondary to inadequate dietary iron intake URI (upper respiratory infection) Surgical History (Updated 12/31/20 @ 16:07 by Wilder Lewis MD) H/O aortic valve replacement H/O mitral valve replacement H/O tubal ligation Hx laparoscopic cholecystectomy Hx of tonsillectomy S/P nasal surgery Nasoendoscopy Social History Smoking and tobacco status: never smoked Quit status (tobacco): has quit using tobacco Year quit tobacco: 2005 [id number] Second hand smoke exposure: No Smoking risk assessment/counseling performed?: Yes Alcohol intake: never Caregiver/support person: No Lives independently: Yes Household members: spouse Housing: Assisted Living Facility Marital status: Current occupational status: disabled Pets and animals: Yes History of recent travel: No Current gender identity: Female Data Anesthesia CBC & Chem 7: 04/02/21 08:21 Other Labs: Laboratory Results - last 48 hr 04/02/21 04/02/21 08:21 08:21 PT 18.40 H INR 1.49 H Sodium 143 Potassium 3.9 Chloride 110 H Carbon Dioxide 24 Anion Gap 12.9 BUN 10 Creatinine 1.0 H GFR Calculation 56.2 L Glucose 118 H Calculated Osmolality 296 H Calcium 8.6 Cardiac Studies: No Data to Display
--- NOTE | 2021-04-02 10:18 | W.PM.OPSUD ---
Surgery/Procedure H&P Update DATE OF PROCEDURE: April 02, 2021 DATE H&P PERFORMED: 03/28/21 H&P UPDATE INFORMATION: I have reviewed H&P completed within last 30 days, I have examined patient prior to procedure and No changes to prior documentation PREOP DIAGNOSIS: panendoscopy PLANNED PROCEDURE: Operation Date: 04/02/21 09:00 Proposed Procedures p Colonoscopy(Not Applicable) - Wilder Lewis MD s EXCISION OF SKIN LESION OF THIGH 65823 L98.9(Bilateral) - Wilder Lewis MD
[2021-04-02] MEDS: vancomycin 1,000 MG in sodium chloride 0.9% 250 ML 250 MG IV (11:25)
[2021-04-02] MEDS: neomycin-poly-bacitracin oint 28 gm 1 APPLIC TOPICAL (12:38)
--- NOTE | 2021-04-02 13:00 | PM.OP ---
Operative Report Date of procedure: April 02, 2021 Pre-op Diagnosis: Iron deficiency anemia Pre-op Diagnosis: 1. Iron deficiency anemia 2. Verrucas skin lesion medial aspect of left thigh 3. Verrucas skin lesion medial aspect of right thigh Post-op Findings: Antral gastric ulcers measuring 5 mm to 1 cm, no active bleeding Internal hemorrhoids 1.5 cm pedunculated polyp sigmoid colon 1 cm sessile polyp descending colon 5 mm sessile polyp ascending colon 2 x 2 cm skin lesion right thigh 3 x 3 cm skin lesion left thigh Procedure Done: Esophagogastroduodenoscopy with biopsy Colonoscopy with polypectomy using hot snare x3 Excision skin lesion right thigh measuring 2 x 2 cm Excision skin lesion left thigh measuring 3 x 3 cm Specimens removed/disposition: 1. Gastric antral biopsy for H. pylori 2. Sigmoid polyp 3. Descending colon polyp 4. Ascending colon polyp 5. Right thigh skin lesion 6. Left thigh skin lesion Surgeon: Wilder Lewis Anesthesia: MAC Condition: stable Disposition: PACU Procedure: The patient was taken to the operating room and placed in left lateral position under MAC and a bite block was placed. A gastroscope was introduced and advanced up to second portion of the duodenum and slowly withdrawn. Duodenum second portion: Normal Duodenal bulb: Normal Stomach Fundus: Normal body: Normal Antrum: 5 mm - 1 cm gastric ulcers biopsied with cold biopsy forceps Pylorus: Normal Esophagus GE junction: Z-line at 40 cm Rest of esophagus: Normal A digital rectal exam revealed small internal hemorrhoids. The colonoscope was introduced and advanced up to cecum with ileocecal valve and appendicular orifice was visualized. The colon prep was fair. Cecum: Normal Ascending colon: 5 mm sessile polyp removed with a hot snare Transverse colon: Normal Descending colon: 1 cm sessile polyp removed with a hot snare Sigmoid colon: 1.5 cm sessile polyp removed with hot snare Rectum: Internal hemorrhoids The colonoscope was withdrawn. The right and left thigh was prepped and draped in sterile manner. 1% lidocaine with 0.5% Marcaine was infiltrated in a suspicious skin lesions. Using electrocautery 2 x 2 cm skin lesion was excised from the right thigh and the wound measured 3 x 2 cm. Subcutaneous tissues were approximated using interrupted 3-0 Vicryl suture and skin was closed using vertical mattress 3-0 Prolene suture. Antibiotic cream and sterile dressings were used to cover the incision. Using electrocautery 3 x 3 cm skin lesion was excised from the right thigh and the wound measured 4 x 3 cm. Subcutaneous tissues were approximated using interrupted 3-0 Vicryl suture and skin was closed using vertical mattress 3-0 Prolene suture. Antibiotic cream and sterile dressings were used to cover the incision. The patient was transferred to recovery room in stable condition
--- NOTE | 2021-04-02 14:40 | PC.NURSE ---
PT STATED SHE DID NOT WANT AND WOULD NOT BE PICKING UP RX FOR EVERYTHING SENT TO PHARMACY TODAY EXCEPT FOR PROTONIX.
--- NOTE | 2021-04-02 17:16 | ANE.PACU2 ---
Inpatient post-anesthesia follow up: Airway intact: Yes Vital signs: Temperature 97.2 F Pulse Rate 64 Respiratory Rate 18 Blood Pressure 141/74 Pulse Oximetry 94 Oxygen Delivery Me thod Room Air Oxygen Flow Rate 8 Fraction of Inspir ed Oxygen Hydration adequate: Yes Nausea and vomiting: No Pain level: 2 Mental status: Baseline
== END 2021-04-02 14:40 | disposition home or self-care (01) ==
PROVIDERS: Anesthesiology; PCP Physician Assistant; Visit Provider Surgery
PROC: 0DJD8ZZ Inspection of Lower Intestinal Tract, Via Natural or Artificial Opening Endoscopic (ICD-10-PCS; CPT 45378; principal; 2021-04-02 08:50)
PROC: (CPT 11403; 2021-04-02 08:50)
PROC: 0DJ08ZZ Inspection of Upper Intestinal Tract, Via Natural or Artificial Opening Endoscopic (ICD-10-PCS; CPT 43235; 2021-04-02 08:50)
DX: D50.9 Iron deficiency anemia, unspecified (principal); B07.8 Other viral warts; K25.9 Gastric ulcer, unspecified as acute or chronic, without hemorrhage or perforation; K64.8 Other hemorrhoids; D12.2 Benign neoplasm of ascending colon; D12.4 Benign neoplasm of descending colon; I69.954 Hemiplegia and hemiparesis following unspecified cerebrovascular disease affecting left non-dominant side; I48.91 Unspecified atrial fibrillation; I50.9 Heart failure, unspecified; E03.9 Hypothyroidism, unspecified
CPT/HCPCS: 11403; 11404; 12032; 43239; 45385; 36415; 80048; 85610; 88304; 88305; J2704; J3010; J3370; J3490; J7030; J7050

== ENCOUNTER 2021-04-02 18:04 | Emergency (ER) | payer MEDICARE, OTHER, SELFPAY ==
[2021-04-02 18:47] VITALS: BP 145/71; PULSE 80; RESP 16; TEMP 36.3; O2SAT 95; BMI 28.7
--- NOTE | 2021-04-02 18:55 | W.ED.WOUNDLC ---
HPI - Wound/Laceration General: Chief Complaint: Wound/Laceration Stated Complaint: Post Surgery Bleeding Time Seen by Provider: 04/02/21 18:55 History of Present Illness: HPI narrative: 60-year-old female comes in today for uncontrolled bleeding to a skin lesion removal area to her left inner thigh. Patient had 2 verruca removed to bilateral thighs but also had a skin tag that was just snipped off. Where the verruca was removed and stitches were applied bleeding is controlled. Where the patient had the skin tag just snipped off is where the bleeding is coming from. Patient reports that the bleeding started about 30 minutes prior to arrival to the ER, which was about 5:00. Patient has saturated through the dressing that was applied after the procedure. Patient appears well. Patient appears in no acute distress. Review of Systems General: Reports: 10 or more systems reviewed and unremarkable except in HPI and below Skin/Breast: Reports: other (Bleeding wound) REPLACED BY [facility] PFSH: Medical History (Updated 04/02/21 @ 19:48 by SIERRA Nicole) Afib CHF (congestive heart failure) CVA (cerebral vascular accident) Hypothyroidism Iron deficiency anemia secondary to inadequate dietary iron intake URI (upper respiratory infection) Surgical History (Updated 04/02/21 @ 12:58 by Wilder Lewis MD) H/O aortic valve replacement H/O esophagogastroduodenoscopy (04/02/21) H/O mitral valve replacement H/O tubal ligation Hx laparoscopic cholecystectomy Hx of tonsillectomy S/P nasal surgery Nasoendoscopy Status post colonoscopy (04/02/21) Social History Smoking and tobacco status: never smoked Quit status (tobacco): has quit using tobacco Year quit tobacco: 2005 [id number] Second hand smoke exposure: No Smoking risk assessment/counseling performed?: Yes Alcohol intake: never Caregiver/support person: No Lives independently: Yes Household members: spouse Housing: Assisted Living Facility Marital status: Current occupational status: disabled Pets and animals: Yes History of recent travel: No Current gender identity: Female Physical Exam Const: COMMON NORMALS: no acute distress and patient oriented x3 GENERAL APPEARANCE: cooperative HENMT: COMMON NORMALS: normocephalic and Normal external nose present HEAD & SCALP: normal to inspection and normocephalic NOSE: Normal external nose present MOUTH: Normal oral and palatal mucosa present Eye: GENERAL EYE: appearance normal, both eyes and all related structures Neck/C-Spine: COMMON NORMALS: full ROM Chest: COMMONS NORMALS: normal inspection of the chest Resp: COMMON NORMALS: normal respiratory effort EFFORT & INSPECTION: Yes able to speak in complete sentences Cardio: COMMON NORMALS: regular rate and regular rhythm RATE: regular rate RHYTHM: regular rhythm GI: COMMON NORMALS: non-tender Extremity: COMMON NORMALS: normal to inspection Neuro: COMMON NORMALS: patient oriented x3 and moves all extremities Psych: COMMON NORMALS: mental status grossly normal and cooperative Skin: NARRATIVE SKIN EXAM: 5 mm bleeding lesion to the left inner thigh. Procedures Laceration Laceration 1: Site: lower extremity Size (cm): 0.5 Description: linear Depth: simple, single layer Local Anesthetic: lidocaine 1% and with epi Amount of anesthesia used (mL): 3 Pre-repair: wound explored Skin layer closed with: nylon Size (cm): 4-0 Number of sutures: 2 Technique: simple, interrupted and horizontal mattress Course Vital Signs: Vital signs: Vital Signs Temperature 97.4 F L 04/02/21 18:47 Pulse Rate 80 04/02/21 18:47 Respiratory Rate 16 04/02/21 18:47 Blood Pressure 145/71 04/02/21 18:47 Pulse Oximetry 95 04/02/21 18:47 MDM - Wound/Laceration MDM Narrative: Medical decision making narrative: 60-year-old female comes in today with bleeding wound to the left inner thigh. Patient had a skin tag removed and it seemed to not bleed all but when she got home and started moving around she started having bleeding from wound. Patient comes into the saturating through some towels and persistent bleeding from the lesion removal area. On exam we note 1/2 a centimeter laceration/snip wound that is bleeding. Differential diagnosis includes anticoagulation, anemia, postsurgical bleeding. A vertical mattress suture and a simple interrupted suture was used to stop the bleeding. Patient tolerated well. Patient was monitored and no recurrent bleeding was noted. Laboratory values were unremarkable. Patient was recommended to continue with routine care and follow-up with surgeon. Patient reported understanding. Lab Data: Labs: Lab Results 04/02/21 Range/Units 19:20 WBC 9.2 (4.0-10.0) 10^3/ uL RBC 4.84 (4.1-5.3) 10^6/u L Hgb 13.8 (11.5-15.3) g/dL Hct 45.5 (37.0-47.0) % MCV 94.0 (81-99) fL MCH 28.5 (28.0-34.0) pg MCHC 30.3 (30.0-36.0) g/dL RDW 16.4 H (12.1-15.1) % Plt Count 203 (130-400) 10^3/c mm MPV 10.4 (7.4-10.4) fL Neut % (Auto) 72.3 % Lymph % (Auto) 17.0 % Wilkes % (Auto) 8.0 % Eos % (Auto) 1.2 % Baso % (Auto) 1.1 % Neut # (Auto) 6.63 (1.8-7.7) 10^3/u L Lymph # (Auto) 1.6 (0.8-4.8) 10^3/u L Wilkes # (Auto) 0.7 (0.2-0.9) 10^3/u L Eos # (Auto) 0.1 (0.0-0.8) 10^3/u L Baso # (Auto) 0.1 (0.0-0.1) 10^3/u L Nucleated RBC % (a uto) 0 % Nucleated RBCs # 0.0 /100WBC Discharge Plan Discharge Patient Disposition: Home Clinical Impression: Bleeding from wound Condition: Stable Prescriptions: No Action furosemide 20 mg tablet 20 mg PO DAILY RF: 0 levothyroxine 100 mcg tablet 100 mcg PO DAILY RF: 0 warfarin [Coumadin] 1 mg tablet 3 mg PO DAILY RF: 0 aspirin 325 mg tablet,delayed release (DR/EC) 325 mg PO DAILY RF: 0 cetirizine [Zyrtec] 10 mg tablet 10 mg PO DAILY RF: 0 potassium chloride 10 mEq capsule, extended release 20 meq PO .every other day RF: 0 warfarin 1 mg tablet 1.5 mg PO DAILY RF: 0 ferrous sulfate [Feosol] 325 mg (65 mg iron) tablet 325 mg PO BID RF: 0 hydrocodone-acetaminophen 5-325 mg tablet 1 tab PO Q6H PRN (Reason: pain) Qty: 20 RF: 0 Lovenox 80 mg/0.8 mL syringe 80 mg SUBCUT Q12H Qty: 8 RF: 1 Protonix 40 mg tablet,delayed release (DR/EC) 40 mg PO BID Qty: 28 RF: 0 Protonix 40 mg tablet,delayed release (DR/EC) 40 mg PO DAILY 42 Days RF: 0 Bactrim DS 800-160 mg tablet 1 tab PO DAILY 7 Days RF: 0 Discharge Orders: Discharge ED (Routine); Ordered 04/02/21 Ordered By: Paul Calderon Referrals: Tika Nicole PA [Primary Care Provider] - Discharge Diet: Usual diet Discharge Activity: Increase activity as tolerated Patient Instructions: Opioid Safety, Wound Care (General) Activity Restrictions/Additional Instructions: Follow-up with Dr. Lewis for further treatment. Keep dressing on the wound for the next 24 hours. Try to keep the wound clean and dry for the next 2 days. Sutures need to come out in 10 days. Monitor site for signs of infection. Return to the ER for new concerns or new bleeding. Coding Level of Care Code ED Window Treatment Installer for Yonny Fwd Exam Comprehensive
[2021-04-02 19:41] LABS: Basophils # 0.1 10^3/uL (0.0-0.1); Basophils % 1.1 %; Eosinophils # 0.1 10^3/uL (0.0-0.8); Eosinophils % 1.2 %; Hematocrit 45.5 % (37.0-47.0); Hemoglobin 13.8 g/dL (11.5-15.3); Lymphocytes # 1.6 10^3/uL (0.8-4.8); Mean Corpuscular HGB Conc 30.3 g/dL (30.0-36.0); Mean Corpuscular Hemoglobin 28.5 pg (28.0-34.0); Mean Platelet Volume 10.4 fL (7.4-10.4); Monocytes # 0.7 10^3/uL (0.2-0.9); Neutrophils # 6.63 10^3/uL (1.8-7.7); Neutrophils % 72.3 %; Nucleated Red Blood Cells % 0 %; Platelet Count 203 10^3/cmm (130-400); Red Blood Count 4.84 10^6/uL (4.1-5.3); Red Cell Distribution Width 16.4 % (12.1-15.1); White Blood Count 9.2 10^3/uL (4.0-10.0)
[2021-04-02 20:02] LABS: INR 1.41 (0.8-1.2)
[2021-04-02 20:03] LABS: Partial Thromboplastin Time 34.3 SECONDS (23.9-36.7)
[2021-04-02 20:11] LABS: Alanine Aminotransferase 15 U/L (0-33); Albumin Level 3.7 g/dL (3.5-5.2); Alkaline Phosphatase 103 IU/L (35-105); Anion Gap 13.8 (5-19); Aspartate Amino Transferase 21 U/L (0-32); Blood Urea Nitrogen 10 mg/dL (8-23); Calcium 8.4 mg/dL (8.5-10.5); Carbon Dioxide 23 mmol/L (22-29); Chloride 109 mmol/L (98-107); Globulin 3.5 g/dL (1.3-4.6); Glomerular Filtration Rate 56.2 mL/min (90-130); Glucose 134 mg/dL (65-115); Osmolality Calculated 295 mOsm/kg (285-295); Potassium 3.8 mmol/L (3.5-5.1); Sodium 142 mmol/L (136-145); Total Bilirubin 0.7 mg/dL (0.15-1.2); Total Protein 7.2 g/dL (6.6-8.7)
[2021-04-02 20:18] LABS: Creatinine Clr Calc Pharmacy 58.6243
== END 2021-04-02 20:10 | disposition home or self-care (01) ==
PROVIDERS: Emergency Provider Nurse Practitioner Family; PCP Physician Assistant
DX: L76.21 Postprocedural hemorrhage of skin and subcutaneous tissue following a dermatologic procedure (principal); Z79.01 Long term (current) use of anticoagulants; Z79.4 Long term (current) use of insulin; Z86.73 Personal history of transient ischemic attack (TIA), and cerebral infarction without residual deficits; I50.9 Heart failure, unspecified; Z87.891 Personal history of nicotine dependence; D50.9 Iron deficiency anemia, unspecified; B07.8 Other viral warts; K25.9 Gastric ulcer, unspecified as acute or chronic, without hemorrhage or perforation; K64.8 Other hemorrhoids; D12.2 Benign neoplasm of ascending colon; D12.4 Benign neoplasm of descending colon; I69.954 Hemiplegia and hemiparesis following unspecified cerebrovascular disease affecting left non-dominant side; I48.91 Unspecified atrial fibrillation; E03.9 Hypothyroidism, unspecified
CPT/HCPCS: 36415; 80048; 80053; 85025; 85610; 85730; 88304; 88305; 99282; J2704; J3010; J3370; J3490; J7030; J7050

== ENCOUNTER 2021-04-07 12:00 | Outpatient (CLI) | payer MEDICARE, OTHER, SELFPAY ==
[2021-04-07 12:45] LABS: Basophils # 0.1 10^3/uL (0.0-0.1); Eosinophils # 0.3 10^3/uL (0.0-0.8); Eosinophils % 3.2 %; Hematocrit 40.3 % (37.0-47.0); Hemoglobin 12.6 g/dL (11.5-15.3); Lymphocytes # 1.5 10^3/uL (0.8-4.8); Lymphocytes % 15.8 %; Mean Corpuscular HGB Conc 31.3 g/dL (30.0-36.0); Mean Corpuscular Volume 92.9 fL (81-99); Mean Platelet Volume 10.4 fL (7.4-10.4); Monocytes # 0.8 10^3/uL (0.2-0.9); Monocytes % 8.1 %; Neutrophils # 6.67 10^3/uL (1.8-7.7); Neutrophils % 70.9 %; Nucleated Red Blood Cells % 0 %; Platelet Count 221 10^3/cmm (130-400); Red Blood Count 4.34 10^6/uL (4.1-5.3); Red Cell Distribution Width 16.2 % (12.1-15.1); White Blood Count 9.4 10^3/uL (4.0-10.0)
[2021-04-07 13:17] LABS: INR 1.75 (0.8-1.2)
[2021-04-07 13:33] LABS: Ferritin 78 ng/mL (15-150); Iron 43 ug/dL (37-145); Percent Saturation 15.6 % (20-50); Total Iron Binding Capacity 275 mcg/dl; Unsaturated Iron Binding 232 ug/dL (112-347)
--- NOTE | 2021-04-07 17:46 | ONC FU_ITS ---
Dr. Valerio follow up note Patient: Bree Hendricks Unit #: [id number]: 1960 Dicatated By: Panfilo Valerio M.D.Date of Visit:Apr 07, 2021 Onc Med Follow-up/Prog Note History of Present Illness: Ms. Bree Hendricks, is a 60-year-old female with a history of iron deficiency anemia about 10 to 15 years ago, as per patient at that time she was given oral iron which she took for 1 month with that her anemia resolved. And then again 1 time her stools were positive for occult blood, Dr. Bowling give her prescription for antibiotic with that her stool cleared., Since then no issues with her blood/hemoglobin until recently when her follow-up labs done on November 25, 2020 shows progressive anemia, her hemoglobin was 10.1 g with hematocrit 37.1 MCV 72.9 white blood count 6.2 platelets 324,000, anemia work-up showed iron saturation 5%, iron 19, TIBC 373 INR 2.95 patient is on Coumadin for history of A. fib and mitral valve replacement. Patient denies any melena or hematochezia, denies any hemoptysis or hematemesis denies any dysuria or hematuria denies any jaundice denies any night sweats denies any weight loss denies any recurrent fever denies any peripheral lymphadenopathy or abdominal fullness., Denies any palpitation or shortness of breath at rest Her past medical history significant for A. fib, aortic valve replacement, mitral valve replacement, cholecystectomy, hypothyroidism, On chronic anticoagulation with Coumadin Patient is a former smoker, denies alcohol use EGD/colonoscopy done on 04/02/2021 shows antral gastric ulcers measuring 5 mm to 1 cm, no active bleeding internal hemorrhoids. 1.5 cm pedunculated polyp sigmoid colon, 1 cm sessile polyp descending colon, 5 mm sessile polyp ascending colon Came for follow-up, denies any specific complaints, no fever chills, no nausea or vomiting, no diarrhea or constipation, tolerating oral iron well, as per patient recently underwent EGD and colonoscopy and bilateral thigh skin lesion removal, as per patient biopsies report is pending, as per patient she also had episode of losing excessive blood after skin biopsy while she was in the hospital and requiring 2 stitches to control the bleeding. Patient is on Coumadin for atrial fibrillation and also has 2 mechanical valve replacement e.g. aortic and mitral Medications: Coumadin (3 mg) Tablet Oral Take as Directed, Furosemide 1 Tablet (of 20 mg) Oral daily, Levo-T 1 Tablet (of 100 mcg) Oral every am, Pantoprazole Sodium 1 Tablet (of 40 mg) Tablet, enteric coated Oral daily, Potassium Chloride ER (20 meq) Tablet, controlled release Oral Take as Directed Allergies: Amoxicillin and Cephalexin. Review of Systems: Review of Systems is not available for this patient. Vital Signs: Performed on Apr 07, 2021 14:17 Temperature - 98.0 F (LOW) Pulse - 77 /min Respiration - 18 /min BP - 124/79 mm(hg) O2 Sat - 97 % Pain - 0 Performance Status: 1 - No physically strenuous activity, but ambulatory and able to carry out light or sedentary work (e.g. office work, light house work). (ECOG) Physical Examination: ENMT - No mouth sores, no thrush no jaundice, Respiratory - Lungs are clear to auscultation, Cardiovascular - Irregular rate and rhythm with mechanical click, Abdomen - Soft, bowel sounds present, Extremities - No visible edema. Lab/Imaging: Most recent lab results are not available for this patient. Impression: Microcytic hypochromic anemia due to iron deficiency etiology probably multifactorial including chronic GI blood loss patient is on anticoagulation or iron malabsorption On oral iron Atrial fibrillation, on Coumadin History of aortic valve/mitral valve replacement EGD/colonoscopy done on 04/02/2021 shows antral gastric ulcer measuring 5 mm to 1 cm, no active bleeding internal hemorrhoids, 1.5 cm pedunculated polyp sigmoid colon, 1 cm sessile polyp descending colon, 5 mm sessile polyp ascending colon were removed Plan: Discussed with patient regarding her labs white blood count 9.4 hemoglobin 12.6 hematocrit 40.3 platelets 221,000 iron saturation 15.6% ferritin 78 compared to 33 previously iron 43 TIBC 275 Clinically, patient doing well with no new signs symptoms suggestive of gross bleeding, follow-up CBC shows hemoglobin normal range, iron stores improving while on oral iron, will continue with same and she will return to clinic in 1 month with CBC and iron studies, patient is on chronic anticoagulation for A. fib and aortic/mitral valve replacement, as per patient he was recommended to keep PT/INR between 2.5-3.5., Recently underwent EGD and colonoscopy which shows gastric ulcer but nonbleeding and also internal hemorrhoids and multiple polyps were removed, biopsies report is pending, will follow Return to clinic in 1 month with CBC and iron studies Signed By: Panfilo Valerio M.D. <<Signature on File>>
== END 2021-04-07 12:01 | disposition home or self-care (01) ==
PROVIDERS: Absent Provider Internal Medicine Cardiovascular Disease; PCP Physician Assistant; Visit Provider Internal Medicine Hematology & Oncology
DX: D50.9 Iron deficiency anemia, unspecified (principal); I48.11 Longstanding persistent atrial fibrillation; Z79.01 Long term (current) use of anticoagulants; Z95.2 Presence of prosthetic heart valve; Z86.010 Personal history of colon polyps; Z79.899 Other long term (current) drug therapy
CPT/HCPCS: 82728; 83540; 83550; 85025; 85610; 99214

== ENCOUNTER 2021-04-17 10:55 | Outpatient (RCR) | payer MEDICARE, OTHER, SELFPAY ==
[2021-04-10 11:33] LABS: INR 2.19 (0.8-1.2)
[2021-04-17 11:26] LABS: INR 2.26 (0.8-1.2)
== END 2021-04-19 23:59 | disposition home or self-care (01) ==
LOC: LAB 10:55
PROVIDERS: PCP Physician Assistant; Visit Provider Internal Medicine Cardiovascular Disease
DX: Z95.4 Presence of other heart-valve replacement (principal); Z95.2 Presence of prosthetic heart valve; Z79.01 Long term (current) use of anticoagulants
CPT/HCPCS: 36415; 85610

== ENCOUNTER 2021-04-25 10:04 | Outpatient (RCR) | payer MEDICARE, OTHER, SELFPAY ==
[2021-04-25 11:22] LABS: INR 2.19 (0.8-1.2)
[2021-05-05 11:41] LABS: INR 2.94 (0.8-1.2)
== END 2021-05-20 23:59 | disposition home or self-care (01) ==
LOC: LAB 10:04
PROVIDERS: PCP Physician Assistant; Visit Provider Internal Medicine Cardiovascular Disease
DX: I48.91 Unspecified atrial fibrillation (principal); I50.9 Heart failure, unspecified; Z79.01 Long term (current) use of anticoagulants; Z95.2 Presence of prosthetic heart valve
CPT/HCPCS: 36415; 85610

== ENCOUNTER 2021-05-12 06:12 | Outpatient (CLI) | payer MEDICARE, OTHER, SELFPAY ==
[2021-05-12 15:40] LABS: INR 3.21 (0.8-1.2)
[2021-05-12 15:46] LABS: Basophils # 0.1 10^3/uL (0.0-0.1); Eosinophils # 0.2 10^3/uL (0.0-0.8); Eosinophils % 2.1 %; Hematocrit 44.2 % (37.0-47.0); Hemoglobin 14.3 g/dL (11.5-15.3); Lymphocytes # 1.6 10^3/uL (0.8-4.8); Mean Corpuscular HGB Conc 32.4 g/dL (30.0-36.0); Mean Corpuscular Hemoglobin 30.1 pg (28.0-34.0); Mean Corpuscular Volume 93.1 fl (81-99); Monocytes # 0.9 10^3/uL (0.2-0.9); Monocytes % 7.6 %; Neutrophils # 8.56 10^3/uL (1.8-7.7); Neutrophils % 74.8 %; Nucleated Red Blood Cells % 0 %; Platelet Count 305 10^3/cmm (130-400); Red Blood Count 4.75 10^6/uL (4.1-5.3); Red Cell Distribution Width 14.6 % (12.1-15.1); White Blood Count 11.4 10^3/uL (4.0-10.0)
[2021-05-12 16:01] LABS: Ferritin 64 ng/mL (15-150); Iron 49 ug/dL (37-145); Percent Saturation 16.4 % (20-50); Total Iron Binding Capacity 298 mcg/dl; Unsaturated Iron Binding 249 ug/dL (112-347)
--- NOTE | 2021-05-12 16:21 | ONC FU_ITS ---
Dr. Valerio follow up note Patient: Bree Hendricks Unit #: [id number]: 1960 Dicatated By: Panfilo Valerio M.D.Date of Visit:May 12, 2021 Onc Med Follow-up/Prog Note History of Present Illness: Ms. Bree Hendricks, is a 61 year-old female with a history of iron deficiency anemia about 10 to 15 years ago, as per patient at that time she was given oral iron which she took for 1 month with that her anemia resolved. And then again 1 time her stools were positive for occult blood, Dr. Bowling give her prescription for antibiotic with that her stool cleared., Since then no issues with her blood/hemoglobin until recently when her follow-up labs done on November 25, 2020 shows progressive anemia, her hemoglobin was 10.1 g with hematocrit 37.1 MCV 72.9 white blood count 6.2 platelets 324,000, anemia work-up showed iron saturation 5%, iron 19, TIBC 373 INR 2.95 patient is on Coumadin for history of A. fib and mitral valve replacement. Patient denies any melena or hematochezia, denies any hemoptysis or hematemesis denies any dysuria or hematuria denies any jaundice denies any night sweats denies any weight loss denies any recurrent fever denies any peripheral lymphadenopathy or abdominal fullness., Denies any palpitation or shortness of breath at rest Her past medical history significant for A. fib, aortic valve replacement, mitral valve replacement, cholecystectomy, hypothyroidism, On chronic anticoagulation with Coumadin Patient is a former smoker, denies alcohol use EGD/colonoscopy done on 04/02/2021 shows antral gastric ulcers measuring 5 mm to 1 cm, no active bleeding internal hemorrhoids. 1.5 cm pedunculated polyp sigmoid colon, 1 cm sessile polyp descending colon, 5 mm sessile polyp ascending colon Came for follow-up, denies any specific complaints, no fever chills, no nausea or vomiting, no diarrhea constipation, no melena hematochezia, no hemoptysis or hematemesis, tolerating oral iron well Medications: Coumadin (3 mg) Tablet Oral Take as Directed, Furosemide 1 Tablet (of 20 mg) Oral daily, Levo-T 1 Tablet (of 100 mcg) Oral every am, Pantoprazole Sodium 1 Tablet (of 40 mg) Tablet, enteric coated Oral daily, Potassium Chloride ER (20 meq) Tablet, controlled release Oral Take as Directed Allergies: Amoxicillin and Cephalexin. Review of Systems: Review of Systems is not available for this patient. Vital Signs: Performed on May 12, 2021 15:50 Weight - 196 lbs (HIGH) BSA - 0.00 sq.m BMI - 0.00 Temperature - 98 F (LOW) Pulse - 110 /min (HIGH) Respiration - 18 /min BP - 128/80 mm(hg) O2 Sat - 95 % (LOW) Pain - 0 Fatigue - 3 Performance Status: 1 - No physically strenuous activity, but ambulatory and able to carry out light or sedentary work (e.g. office work, light house work). (ECOG) Physical Examination: ENMT - No mouth sores, no thrush, no jaundice, Respiratory - Lungs are clear to auscultation, Cardiovascular - Irregular rate and rhythm, Abdomen - Soft, bowel sounds present, Extremities - No visible edema. Lab/Imaging: Most recent lab results are not available for this patient. Impression: Microcytic hypochromic anemia due to iron deficiency etiology probably multifactorial including chronic GI blood loss patient is on anticoagulation or iron malabsorption On oral iron Atrial fibrillation, on Coumadin History of aortic valve/mitral valve replacement EGD/colonoscopy done on 04/02/2021 shows antral gastric ulcer measuring 5 mm to 1 cm, no active bleeding internal hemorrhoids, 1.5 cm pedunculated polyp sigmoid colon, 1 cm sessile polyp descending colon, 5 mm sessile polyp ascending colon were removed Plan: Discussed with patient regarding her labs white blood count 11.4 hemoglobin 14.3 g hematocrit 44.2 platelets 305,000 ferritin 64 compared to 78 previously iron 49 TIBC 298 Clinically, patient is doing well with no new signs symptom suggestive of gross bleeding her lab work-up shows further improvement in her iron deficiency anemia but iron stores in the lower side of normal range, patient is tolerating oral iron well will continue with same and return to clinic in 2 months with CBC and iron studies, if there is a drop in her hemoglobin or iron stores, we will consider capsule endoscopy to rule out small bowel AVMs as EGD and colonoscopy done recently shows no evidence of active bleeding Signed By: Panfilo Valerio M.D. <<Signature on File>>
== END 2021-05-12 06:13 | disposition home or self-care (01) ==
LOC: ONCMED 06:14
PROVIDERS: PCP Physician Assistant; Visit Provider Internal Medicine Hematology & Oncology
DX: D50.9 Iron deficiency anemia, unspecified (principal); I48.11 Longstanding persistent atrial fibrillation; Z86.010 Personal history of colon polyps; Z79.01 Long term (current) use of anticoagulants; Z95.2 Presence of prosthetic heart valve; Z79.899 Other long term (current) drug therapy
CPT/HCPCS: 36415; 82728; 83540; 83550; 85025; 85610; 99214

== ENCOUNTER 2021-06-11 10:42 | Outpatient (CLI) | payer MEDICARE, OTHER, SELFPAY ==
[2021-06-11 11:41] LABS: INR 2.48 (0.8-1.2)
[2021-06-11 11:42] LABS: Anion Gap 14.9 (5-19); Blood Urea Nitrogen 16 mg/dL (8-23); Calcium 9.6 mg/dL (8.5-10.5); Carbon Dioxide 25 mmol/L (22-29); Chloride 101 mmol/L (98-107); Glucose 148 mg/dL (65-115); NT Pro B Type Natriuretic Pept 201 pg/mL (0-125); Osmolality Calculated 288 mOsm/kg (285-295); Potassium 3.9 mmol/L (3.5-5.1); Sodium 137 mmol/L (136-145)
== END 2021-06-11 10:43 | disposition home or self-care (01) ==
PROVIDERS: PCP Physician Assistant; Visit Provider Internal Medicine Cardiovascular Disease
DX: I50.32 Chronic diastolic (congestive) heart failure (principal); R06.02 Shortness of breath; Z95.2 Presence of prosthetic heart valve; D50.8 Other iron deficiency anemias; D64.9 Anemia, unspecified
CPT/HCPCS: 36415; 80048; 83735; 83880; 85610

== ENCOUNTER 2021-07-10 10:35 | Outpatient (CLI) | payer MEDICARE, OTHER, SELFPAY ==
[2021-07-10 11:16] LABS: INR 2.35 (0.8-1.2)
== END 2021-07-10 10:36 | disposition home or self-care (01) ==
PROVIDERS: Internal Medicine Cardiovascular Disease; PCP Physician Assistant; Visit Provider Internal Medicine Critical Care Medicine
DX: I50.32 Chronic diastolic (congestive) heart failure (principal); Z95.2 Presence of prosthetic heart valve
CPT/HCPCS: 36415; 85610

== ENCOUNTER 2021-08-13 10:46 | Outpatient (CLI) | payer MEDICARE, OTHER, SELFPAY ==
[2021-08-13 11:42] LABS: Basophils # 0.1 10^3/uL (0.0-0.1); Basophils % 0.9 %; Eosinophils # 0.2 10^3/uL (0.0-0.8); Eosinophils % 3.3 %; Hematocrit 45.6 % (37.0-47.0); Hemoglobin 14.7 g/dL (11.5-15.3); Lymphocytes # 1.4 10^3/uL (0.8-4.8); Lymphocytes % 24.4 %; Mean Corpuscular HGB Conc 32.2 g/dL (30.0-36.0); Mean Corpuscular Hemoglobin 29.8 pg (28.0-34.0); Mean Corpuscular Volume 92.3 fl (81-99); Mean Platelet Volume 10.5 fL (7.4-10.4); Monocytes # 0.5 10^3/uL (0.2-0.9); Monocytes % 8.1 %; Neutrophils # 3.65 10^3/uL (1.8-7.7); Neutrophils % 62.6 %; Nucleated Red Blood Cells % 0 %; Platelet Count 236 10^3/cmm (130-400); Red Blood Count 4.94 10^6/uL (4.1-5.3); Red Cell Distribution Width 14.7 % (12.1-15.1); White Blood Count 5.8 10^3/uL (4.0-10.0)
[2021-08-13 12:01] LABS: Alanine Aminotransferase 23 U/L (0-33); Albumin Level 3.8 g/dL (3.5-5.2); Alkaline Phosphatase 114 IU/L (35-105); Anion Gap 13.9 (5-19); Aspartate Amino Transferase 37 U/L (0-32); Blood Urea Nitrogen 11 mg/dL (8-23); Calcium 8.9 mg/dL (8.5-10.5); Carbon Dioxide 23 mmol/L (22-29); Chloride 105 mmol/L (98-107); Globulin 3.8 g/dL (1.3-4.6); Glomerular Filtration Rate 63.2 mL/min (90-130); Glucose 120 mg/dL (65-115); Osmolality Calculated 287 mOsm/kg (285-295); Potassium 3.9 mmol/L (3.5-5.1); Sodium 138 mmol/L (136-145); Total Bilirubin 0.5 mg/dL (0.15-1.2); Total Protein 7.6 g/dL (6.6-8.7)
== END 2021-08-13 10:47 | disposition home or self-care (01) ==
PROVIDERS: PCP Family Medicine; Referring Provider Internal Medicine Cardiovascular Disease; Visit Provider Family Medicine
DX: K52.9 Noninfective gastroenteritis and colitis, unspecified (principal); R50.9 Fever, unspecified
CPT/HCPCS: 36415; 80053; 85025; 85610; 87506

== ENCOUNTER 2021-08-27 12:16 | Outpatient (CLI) | payer MEDICARE, OTHER, SELFPAY ==
[2021-08-27 13:28] LABS: INR 2.75 (0.83-1.21); Prothrombin Time (Patient) 29.6 Seconds (12.0-15.1)
== END 2021-08-27 12:17 | disposition home or self-care (01) ==
LOC: LAB 12:19
PROVIDERS: Internal Medicine Cardiovascular Disease; PCP Family Medicine; Visit Provider Hospitalist
DX: Z95.2 Presence of prosthetic heart valve (principal); Z79.01 Long term (current) use of anticoagulants
CPT/HCPCS: 36415; 85610

== ENCOUNTER 2021-09-24 11:44 | Outpatient (CLI) | payer MEDICARE, OTHER, SELFPAY ==
[2021-09-24 12:38] LABS: INR 3.96 (0.8-1.2)
== END 2021-09-24 11:45 | disposition home or self-care (01) ==
LOC: LAB 11:49
PROVIDERS: PCP Family Medicine; Visit Provider Internal Medicine Cardiovascular Disease
DX: R06.02 Shortness of breath (principal)
CPT/HCPCS: 36415; 85610

== ENCOUNTER 2021-10-01 11:51 | Outpatient (CLI) | payer MEDICARE, OTHER, SELFPAY ==
[2021-10-01 13:08] LABS: Erythrocyte Sedimentation Rate 63 mm/hr (0-15)
[2021-10-01 13:13] LABS: INR 3.96 (0.8-1.2)
[2021-10-01 13:24] LABS: C Reactive Protein 38.4 mg/L (0.0-4.9)
== END 2021-10-01 11:52 | disposition home or self-care (01) ==
LOC: LAB 11:59
PROVIDERS: PCP Family Medicine; Visit Provider Internal Medicine Cardiovascular Disease
DX: R50.9 Fever, unspecified (principal); Z95.2 Presence of prosthetic heart valve
CPT/HCPCS: 36415; 85610; 85651; 86140

== ENCOUNTER 2021-10-08 10:10 | Outpatient (CLI) | payer MEDICARE, OTHER, SELFPAY ==
[2021-10-08 11:23] LABS: INR 2.67 (0.83-1.21); Prothrombin Time (Patient) 28.9 Seconds (12.0-15.1)
== END 2021-10-08 10:11 | disposition home or self-care (01) ==
LOC: LAB 10:22
PROVIDERS: PCP Family Medicine; Visit Provider Internal Medicine Cardiovascular Disease
DX: Z79.01 Long term (current) use of anticoagulants (principal); Z95.2 Presence of prosthetic heart valve
CPT/HCPCS: 36415; 85610

== ENCOUNTER 2021-11-10 10:31 | Outpatient (CLI) | payer MEDICARE, OTHER, SELFPAY ==
[2021-11-10 11:54] LABS: INR 1.67 (0.83-1.21); Prothrombin Time (Patient) 20.1 Seconds (12.0-15.1)
== END 2021-11-10 10:32 | disposition home or self-care (01) ==
LOC: LAB 10:39
PROVIDERS: PCP Family Medicine; Visit Provider Internal Medicine Cardiovascular Disease
DX: I50.32 Chronic diastolic (congestive) heart failure (principal); Z95.2 Presence of prosthetic heart valve
CPT/HCPCS: 36415; 85610

== ENCOUNTER 2021-11-18 09:37 | Outpatient (CLI) | payer MEDICARE, OTHER, SELFPAY ==
[2021-11-18 10:27] LABS: INR 2.07 (0.8-1.2)
== END 2021-11-18 09:38 | disposition home or self-care (01) ==
LOC: LAB 09:42
PROVIDERS: PCP Family Medicine; Visit Provider Internal Medicine Cardiovascular Disease
DX: Z95.2 Presence of prosthetic heart valve (principal)
CPT/HCPCS: 36415; 85610

== ENCOUNTER → 2021-11-19 10:32 | Outpatient (BNVA) | payer MEDICARE, OTHER, SELFPAY | PROVIDERS: PCP Family Medicine; Visit Provider Internal Medicine Cardiovascular Disease | DX: Z79.01 Long term (current) use of anticoagulants (principal) ==

== ENCOUNTER 2021-11-27 10:04 | Outpatient (CLI) | payer MEDICARE, OTHER, SELFPAY ==
[2021-11-27 10:43] LABS: INR 2.75 (0.8-1.2)
== END 2021-11-27 10:05 | disposition home or self-care (01) ==
LOC: LAB 10:06
PROVIDERS: PCP Family Medicine; Visit Provider Internal Medicine Cardiovascular Disease
DX: Z95.2 Presence of prosthetic heart valve (principal)
CPT/HCPCS: 85610

== ENCOUNTER → 2021-11-28 11:22 | Outpatient (BNVA) | payer MEDICARE, OTHER, SELFPAY | PROVIDERS: PCP Family Medicine; Visit Provider Internal Medicine Cardiovascular Disease | DX: Z79.01 Long term (current) use of anticoagulants (principal) ==

== ENCOUNTER 2022-01-05 15:02 | Outpatient (CLI) | payer MEDICARE, OTHER, SELFPAY ==
[2022-01-05 16:10] LABS: INR 3.12 (0.8-1.2)
== END 2022-01-05 15:03 | disposition home or self-care (01) ==
LOC: LAB 15:07
PROVIDERS: PCP Family Medicine; Visit Provider Internal Medicine Cardiovascular Disease
DX: Z95.2 Presence of prosthetic heart valve (principal); Z79.01 Long term (current) use of anticoagulants
CPT/HCPCS: 85610

== ENCOUNTER → 2022-01-07 12:40 | Outpatient (BNVA) | payer MEDICARE, OTHER, SELFPAY | PROVIDERS: PCP Family Medicine; Visit Provider Internal Medicine Cardiovascular Disease | DX: Z79.01 Long term (current) use of anticoagulants (principal) ==

== ENCOUNTER 2022-02-19 11:34 | Outpatient (CLI) | payer MEDICARE, OTHER, SELFPAY ==
[2022-02-19 13:25] LABS: INR 2.86 (0.8-1.2)
== END 2022-02-19 11:35 | disposition home or self-care (01) ==
LOC: LAB 11:37
PROVIDERS: PCP Family Medicine; Visit Provider Internal Medicine Cardiovascular Disease
DX: Z95.2 Presence of prosthetic heart valve (principal); Z79.01 Long term (current) use of anticoagulants
CPT/HCPCS: 85610

== ENCOUNTER → 2022-02-20 10:00 | Outpatient (BNVA) | payer MEDICARE, OTHER, SELFPAY | PROVIDERS: PCP Family Medicine; Visit Provider Internal Medicine Cardiovascular Disease | DX: Z79.01 Long term (current) use of anticoagulants (principal) ==

== ENCOUNTER → 2022-03-19 13:21 | Outpatient (BNVA) | payer MEDICARE, OTHER, SELFPAY | PROVIDERS: PCP Family Medicine; Visit Provider Internal Medicine Cardiovascular Disease | DX: I48.91 Unspecified atrial fibrillation (principal); Z95.2 Presence of prosthetic heart valve; I50.32 Chronic diastolic (congestive) heart failure; D50.8 Other iron deficiency anemias; Z79.01 Long term (current) use of anticoagulants; Z87.891 Personal history of nicotine dependence | CPT/HCPCS: 99213 ==

== ENCOUNTER 2022-03-25 14:19 | Outpatient (CLI) | payer MEDICARE, OTHER, SELFPAY ==
[2022-03-25 15:42] LABS: INR 3.16 (0.8-1.2)
== END 2022-03-25 14:20 | disposition home or self-care (01) ==
LOC: LAB 14:28
PROVIDERS: PCP Family Medicine; Visit Provider Internal Medicine Cardiovascular Disease
DX: Z95.2 Presence of prosthetic heart valve (principal)
CPT/HCPCS: 36415; 85610

== ENCOUNTER → 2022-03-27 13:54 | Outpatient (BNVA) | payer MEDICARE, OTHER, SELFPAY | PROVIDERS: PCP Family Medicine; Visit Provider Internal Medicine Cardiovascular Disease | DX: Z79.01 Long term (current) use of anticoagulants (principal) ==

== ENCOUNTER 2022-04-21 13:50 | Outpatient (CLI) | payer MEDICARE, OTHER, SELFPAY ==
[2022-04-21 15:43] LABS: INR 2.92 (0.8-1.2)
== END 2022-04-21 13:51 | disposition home or self-care (01) ==
LOC: LAB 13:57
PROVIDERS: PCP Family Medicine; Visit Provider Internal Medicine Cardiovascular Disease
DX: Z79.01 Long term (current) use of anticoagulants (principal)
CPT/HCPCS: 36415; 85610

== ENCOUNTER 2022-05-27 11:00 | Outpatient (CLI) | payer MEDICARE, OTHER, SELFPAY ==
--- NOTE | 2022-05-27 11:15 | USCV_ITS ---
Bree Hendricks Age: 62 Gender: F : 1960 Exam Date: 05/27/2022 11:41 Ordering Phys: Dexter Olsen MD ([email or web address]) Technologist: Exam Location: [facility] – [place] Indication: mitral pros ao pros BP: 132 / 80 HR: 70 Rhythm: Sinus Technical Quality: Adequate MEASUREMENTS (Male / Female) Normal Values 2D ECHO LV Diastolic Diameter PLAX 4.5 cm 4.2 - 5.9 / 3.9 - 5.3 cm LV Systolic Diameter PLAX 2.7 cm IVS Diastolic Thickness 1.1 cm 0.6 - 1.0 / 0.6 - 0.9 cm IVS Systolic Thickness 1.3 cm LVPW Diastolic Thickness 1.2 cm 0.6 - 1.0 / 0.6 - 0.9 cm LVPW Systolic Thickness 1.4 cm LVOT Diameter 2.1 cm LV Ejection Fraction 2D Teich 71.5 % LV Ejection Fraction MOD 2C 59.5 % LV Ejection Fraction 2C AL 59.0 % LA Diameter 4.2 cm M-MODE Aortic Annulus Diameter 4.5 cm LA Ao Ratio MM 0.9 DOPPLER AV Peak Velocity 211.8 cm/s LVOT Peak Velocity 63.0 cm/s AV Area Cont Eq vti 1.1 cm squared AV Area Cont Eq pk 1.0 cm squared MV Area PHT 5.0 cm squared Mitral E to A Ratio 1.8 MV E' Velocity 73.5 cm/s Mitral E to MV E' Ratio 15.1 Mitral E to LV E' Lateral Ratio 14.7 Mitral E to LV E' Septal Ratio 15.8 TR Peak Velocity 227.3 cm/s TR Peak Gradient 20.7 mmHg TV Peak E Velocity 47.0 cm/s Right Atrial Pressure 3.0 mmHg Pulmonary Artery Systolic Pressu 23.7 mmHg RV Acceleration Time 0.1 s FINDINGS Left Ventricle Technically limited quality echocardiogram. Grossly LV systolic function is normal. Regional wall motion abnormalities cannot be accurately assessed because of poor ultrasonic windows. Right Ventricle Grossly normal Right Atrium Not well-visualized Left Atrium Normal in size Mitral Valve Mechanical mitral valve. Not very well visualized. No significant stenosis. Mild mitral regurgitation. Aortic Valve Mechanical aortic valve. Not very well visualized. Mean gradient across aortic valve is 9.6 mmHg. Peak gradient is 20.2 mmHg. DVI of 0.28 that is normal Tricuspid Valve Mild tricuspid regurgitation. RVSP is 35 to 40 mmHg. This is consistent with mild pulmonary hypertension. Pulmonic Valve Mild pulmonic regurgitation. Pericardium Grossly normal Aorta Normal in size IVC CONCLUSIONS Technically limited quality echocardiogram. Grossly LV systolic function is normal. Mechanical mitral valve present. Not well visualized. No significant stenosis or mitral regurgitation noted. Mechanical aortic valve present. Not very well visualized. Mean gradient across aortic valve is 9.6 mmHg. Peak gradient is 20.2 mmHg. DVI is 0.28 that is normal Mild pulmonic regurgitation Mild tricuspid regurgitation. Mild pulmonary hypertension No comparison studies are available. Nicolas Day MD (Electronically Signed) Final Date: 08 June 2022 12:49 S
== END 2022-05-27 11:01 | disposition home or self-care (01) ==
LOC: RAD 11:04
PROVIDERS: PCP Family Medicine; Visit Provider Internal Medicine Cardiovascular Disease
DX: Z95.2 Presence of prosthetic heart valve (principal); I07.1 Rheumatic tricuspid insufficiency; I27.20 Pulmonary hypertension, unspecified
CPT/HCPCS: 36415; 85610; 93306

== ENCOUNTER 2022-05-27 11:01 | Outpatient (CLI) | payer MEDICARE, OTHER, SELFPAY ==
[2022-05-27 12:16] LABS: INR 2.03 (0.8-1.2)
== END 2022-05-27 11:02 | disposition home or self-care (01) ==
LOC: LAB 11:04
PROVIDERS: PCP Family Medicine; Visit Provider Internal Medicine Cardiovascular Disease
DX: Z95.2 Presence of prosthetic heart valve (principal)
CPT/HCPCS: 36415; 85610

== ENCOUNTER 2022-07-06 12:59 | Outpatient (CLI) | payer MEDICARE, OTHER, SELFPAY ==
[2022-07-06 14:06] LABS: INR 1.95 (0.8-1.2)
[2022-07-06 14:19] LABS: Thyroid Stimulating Hormone 0.01 uIU/mL (0.27-4.20)
== END 2022-07-06 13:00 | disposition home or self-care (01) ==
LOC: LAB 13:03
PROVIDERS: PCP Family Medicine; Visit Provider Internal Medicine Cardiovascular Disease
DX: Z79.01 Long term (current) use of anticoagulants (principal); E03.9 Hypothyroidism, unspecified; Z95.2 Presence of prosthetic heart valve
CPT/HCPCS: 36415; 84443; 85610

== ENCOUNTER 2022-07-06 13:06 | Outpatient (CLI) | payer MEDICARE, OTHER, SELFPAY ==
[2022-07-08 10:06] LABS: Free T4 Free Thyroxine 2.39 ng/dL (0.82-1.77); T3 Free 3.1 PG/ML (2.0-4.4)
== END 2022-07-06 13:07 | disposition home or self-care (01) ==
LOC: LAB 13:09
PROVIDERS: Internal Medicine Cardiovascular Disease; PCP Family Medicine; Visit Provider Family Medicine
DX: E03.9 Hypothyroidism, unspecified (principal); Z79.01 Long term (current) use of anticoagulants; Z95.2 Presence of prosthetic heart valve
CPT/HCPCS: 36415; 84439; 84443; 84481; 85610

== ENCOUNTER 2022-07-13 09:08 | Outpatient (CLI) | payer MEDICARE, OTHER, SELFPAY ==
[2022-07-13 09:47] LABS: INR 2.63 (0.8-1.2)
== END 2022-07-13 09:09 | disposition home or self-care (01) ==
LOC: LAB 09:11
PROVIDERS: PCP Family Medicine; Visit Provider Internal Medicine Cardiovascular Disease
DX: Z95.2 Presence of prosthetic heart valve (principal)
CPT/HCPCS: 36415; 85610

== ENCOUNTER 2022-08-07 10:25 | Outpatient (CLI) | payer MEDICARE, OTHER, SELFPAY ==
[2022-08-07 11:02] LABS: INR 1.52 (0.8-1.2)
== END 2022-08-07 10:26 | disposition home or self-care (01) ==
LOC: LAB 10:29
PROVIDERS: PCP Family Medicine; Visit Provider Internal Medicine Cardiovascular Disease
DX: Z79.01 Long term (current) use of anticoagulants (principal); Z95.2 Presence of prosthetic heart valve
CPT/HCPCS: 36415; 85610

== ENCOUNTER 2022-08-12 10:13 | Outpatient (CLI) | payer MEDICARE, OTHER, SELFPAY ==
[2022-08-12 11:09] LABS: INR 2.22 (0.8-1.2)
== END 2022-08-12 10:14 | disposition home or self-care (01) ==
LOC: LAB 10:20
PROVIDERS: PCP Family Medicine; Visit Provider Internal Medicine Cardiovascular Disease
DX: Z95.2 Presence of prosthetic heart valve (principal)
CPT/HCPCS: 36415; 85610

== ENCOUNTER 2022-08-24 10:16 | Outpatient (CLI) | payer MEDICARE, OTHER, SELFPAY ==
[2022-08-24 11:53] LABS: INR 7.39 (0.8-1.2)
== END 2022-08-24 10:17 | disposition home or self-care (01) ==
LOC: LAB 10:19
PROVIDERS: PCP Family Medicine; Visit Provider Internal Medicine Cardiovascular Disease
DX: Z95.2 Presence of prosthetic heart valve (principal); I50.32 Chronic diastolic (congestive) heart failure; D64.9 Anemia, unspecified
CPT/HCPCS: 85610

== ENCOUNTER 2022-08-31 10:35 | Outpatient (CLI) | payer MEDICARE, OTHER, SELFPAY ==
[2022-08-31 11:06] LABS: INR 2.31 (0.8-1.2)
== END 2022-08-31 10:36 | disposition home or self-care (01) ==
LOC: LAB 10:39
PROVIDERS: PCP Family Medicine; Visit Provider Internal Medicine Cardiovascular Disease
DX: Z95.2 Presence of prosthetic heart valve (principal); Z79.01 Long term (current) use of anticoagulants
CPT/HCPCS: 85610

== ENCOUNTER → 2022-10-09 12:36 | Outpatient (BNVA) | payer MEDICARE, SELFPAY | PROVIDERS: PCP Family Medicine; Visit Provider Internal Medicine Cardiovascular Disease | DX: I48.91 Unspecified atrial fibrillation (principal); Z79.01 Long term (current) use of anticoagulants; Z95.2 Presence of prosthetic heart valve; I50.32 Chronic diastolic (congestive) heart failure; Z87.891 Personal history of nicotine dependence | CPT/HCPCS: 36415; 80053; 85025; 85610; 99214 ==

== ENCOUNTER 2022-10-16 12:31 | Outpatient (CLI) | payer MEDICARE, SELFPAY ==
[2022-10-16 13:39] LABS: INR 2.57 (0.8-1.2)
== END 2022-10-16 12:32 | disposition home or self-care (01) ==
LOC: LAB 12:37
PROVIDERS: PCP Family Medicine; Visit Provider Internal Medicine Cardiovascular Disease
DX: I48.91 Unspecified atrial fibrillation (principal); Z95.2 Presence of prosthetic heart valve; Z79.01 Long term (current) use of anticoagulants; I50.32 Chronic diastolic (congestive) heart failure
CPT/HCPCS: 36415; 85610

== ENCOUNTER 2022-11-09 11:46 | Outpatient (CLI) | payer MEDICARE, SELFPAY ==
[2022-11-09 13:58] LABS: INR 3.36 (0.8-1.2)
== END 2022-11-09 11:47 | disposition home or self-care (01) ==
PROVIDERS: PCP Family Medicine; Visit Provider Internal Medicine Cardiovascular Disease
DX: Z79.01 Long term (current) use of anticoagulants (principal); I50.32 Chronic diastolic (congestive) heart failure; I48.91 Unspecified atrial fibrillation; Z95.2 Presence of prosthetic heart valve
CPT/HCPCS: 36415; 85610

== ENCOUNTER 2022-12-07 11:26 | Outpatient (CLI) | payer MEDICARE, SELFPAY ==
[2022-12-07 12:18] LABS: INR 3.04 (0.8-1.2)
== END 2022-12-07 11:27 | disposition home or self-care (01) ==
LOC: LAB 11:34
PROVIDERS: PCP Family Medicine; Visit Provider Internal Medicine Cardiovascular Disease
DX: I50.32 Chronic diastolic (congestive) heart failure (principal); Z79.01 Long term (current) use of anticoagulants; I48.91 Unspecified atrial fibrillation; Z95.2 Presence of prosthetic heart valve
CPT/HCPCS: 36415; 85610

== ENCOUNTER 2023-01-11 10:57 | Outpatient (CLI) | payer MEDICARE, SELFPAY | END 2023-01-11 10:58 | disposition home or self-care (01) | LOC: LAB 11:05 | PROVIDERS: PCP Family Medicine; Visit Provider Internal Medicine Cardiovascular Disease | DX: Z95.2 Presence of prosthetic heart valve (principal); I48.91 Unspecified atrial fibrillation; Z79.01 Long term (current) use of anticoagulants; I50.32 Chronic diastolic (congestive) heart failure | CPT/HCPCS: 36415; 85610 ==

== ENCOUNTER 2023-03-10 10:25 | Outpatient (CLI) | payer MEDICARE, SELFPAY ==
[2023-03-10 11:15] LABS: INR 2.59 (0.8-1.2)
== END 2023-03-10 10:26 | disposition home or self-care (01) ==
PROVIDERS: PCP Family Medicine; Visit Provider Internal Medicine Cardiovascular Disease
DX: Z79.01 Long term (current) use of anticoagulants (principal); Z95.2 Presence of prosthetic heart valve; I48.91 Unspecified atrial fibrillation; I50.32 Chronic diastolic (congestive) heart failure
CPT/HCPCS: 36415; 85610

== ENCOUNTER 2023-04-27 11:37 | Outpatient (CLI) | payer MEDICARE, SELFPAY ==
[2023-04-27 12:25] LABS: INR 3.06 (0.83-1.21); Prothrombin Time (Patient) 32.8 Seconds (12.0-15.1)
== END 2023-04-27 11:38 | disposition home or self-care (01) ==
PROVIDERS: PCP Family Medicine; Visit Provider Internal Medicine Cardiovascular Disease
DX: I48.91 Unspecified atrial fibrillation (principal); Z79.01 Long term (current) use of anticoagulants
CPT/HCPCS: 85610

== ENCOUNTER → 2023-06-04 12:11 | Outpatient (BNVA) | payer MEDICARE, SELFPAY | PROVIDERS: PCP Family Medicine; Visit Provider Internal Medicine Cardiovascular Disease | DX: Z95.2 Presence of prosthetic heart valve (principal); I48.91 Unspecified atrial fibrillation; I50.32 Chronic diastolic (congestive) heart failure; Z87.891 Personal history of nicotine dependence; R94.31 Abnormal electrocardiogram [ECG] [EKG] | CPT/HCPCS: 36415; 80053; 80061; 83721; 83880; 84443; 85025; 85610; 93005; 99214 ==

== ENCOUNTER 2023-07-05 12:47 | Outpatient (CLI) | payer MEDICARE, SELFPAY | END 2023-07-05 12:48 | disposition home or self-care (01) | PROVIDERS: PCP Family Medicine; Visit Provider Internal Medicine Cardiovascular Disease | DX: I50.32 Chronic diastolic (congestive) heart failure (principal); Z79.01 Long term (current) use of anticoagulants; I48.91 Unspecified atrial fibrillation; Z95.2 Presence of prosthetic heart valve | CPT/HCPCS: 36415; 85610 ==

== ENCOUNTER 2023-08-09 13:21 | Outpatient (CLI) | payer MEDICARE, SELFPAY ==
[2023-08-09 14:22] LABS: INR 2.66 (0.8-1.2)
== END 2023-08-09 13:22 | disposition home or self-care (01) ==
PROVIDERS: PCP Family Medicine; Visit Provider Internal Medicine Cardiovascular Disease
DX: Z79.01 Long term (current) use of anticoagulants (principal)
CPT/HCPCS: 36415; 85610

== ENCOUNTER 2023-09-08 11:57 | Outpatient (CLI) | payer MEDICARE, SELFPAY ==
[2023-09-08 12:55] LABS: INR 2.93 (0.8-1.2)
== END 2023-09-08 11:58 | disposition home or self-care (01) ==
LOC: LAB 11:59
PROVIDERS: PCP Family Medicine; Visit Provider Internal Medicine Cardiovascular Disease
DX: Z79.01 Long term (current) use of anticoagulants (principal); Z95.2 Presence of prosthetic heart valve; I50.32 Chronic diastolic (congestive) heart failure; I48.91 Unspecified atrial fibrillation
CPT/HCPCS: 36415; 85610

== ENCOUNTER 2023-10-07 11:04 | Outpatient (CLI) | payer MEDICARE, SELFPAY ==
[2023-10-07 11:39] LABS: INR 2.15 (0.8-1.2)
== END 2023-10-07 11:05 | disposition home or self-care (01) ==
LOC: LAB 11:07
PROVIDERS: PCP Family Medicine; Visit Provider Internal Medicine Cardiovascular Disease
DX: Z79.01 Long term (current) use of anticoagulants (principal); I48.91 Unspecified atrial fibrillation; I50.32 Chronic diastolic (congestive) heart failure; Z95.2 Presence of prosthetic heart valve
CPT/HCPCS: 85610

== ENCOUNTER 2023-11-30 13:07 | Outpatient (CLI) | payer MEDICARE, SELFPAY ==
[2023-11-30 14:34] LABS: INR 2.76 (0.8-1.2)
== END 2023-11-30 13:08 | disposition home or self-care (01) ==
LOC: LAB 13:10
PROVIDERS: PCP Family Medicine; Visit Provider Internal Medicine Cardiovascular Disease
DX: Z79.01 Long term (current) use of anticoagulants (principal); I50.32 Chronic diastolic (congestive) heart failure; I48.91 Unspecified atrial fibrillation; Z95.2 Presence of prosthetic heart valve
CPT/HCPCS: 36415; 85610

== ENCOUNTER 2023-12-14 11:20 | Outpatient (CLI) | payer MEDICARE, SELFPAY ==
[2023-12-14 12:06] LABS: INR 2.91 (0.8-1.2)
== END 2023-12-14 11:21 | disposition home or self-care (01) ==
LOC: LAB 11:26
PROVIDERS: PCP Family Medicine; Visit Provider Internal Medicine Cardiovascular Disease
DX: Z95.2 Presence of prosthetic heart valve (principal); Z95.4 Presence of other heart-valve replacement; I97.89 Other postprocedural complications and disorders of the circulatory system, not elsewhere classified; I48.91 Unspecified atrial fibrillation
CPT/HCPCS: 36415; 85610

== ENCOUNTER 2023-12-27 09:51 | Outpatient (CLI) | payer MEDICARE, SELFPAY ==
[2023-12-27 10:42] LABS: INR 3.54 (0.8-1.2)
== END 2023-12-27 09:52 | disposition home or self-care (01) ==
LOC: LAB 09:53
PROVIDERS: PCP Family Medicine; Visit Provider Internal Medicine Cardiovascular Disease
DX: Z95.2 Presence of prosthetic heart valve (principal)
CPT/HCPCS: 36415; 85610

== ENCOUNTER 2024-01-24 11:37 | Outpatient (CLI) | payer MEDICARE, SELFPAY ==
[2024-01-24 12:59] LABS: INR 3.67 (0.8-1.2)
== END 2024-01-24 11:38 | disposition home or self-care (01) ==
PROVIDERS: PCP Family Medicine; Visit Provider Internal Medicine Cardiovascular Disease
DX: Z95.2 Presence of prosthetic heart valve (principal); Z79.01 Long term (current) use of anticoagulants
CPT/HCPCS: 36415; 85610

== ENCOUNTER 2024-02-09 14:06 | Outpatient (CLI) | payer MEDICARE, SELFPAY | END 2024-02-09 14:07 | disposition home or self-care (01) | LOC: LAB 14:09 | PROVIDERS: PCP Family Medicine | DX: Z95.2 Presence of prosthetic heart valve (principal) | CPT/HCPCS: 36415; 85610 ==

== ENCOUNTER 2024-02-24 12:36 | Outpatient (CLI) | payer MEDICARE, SELFPAY ==
[2024-02-24 13:12] LABS: INR 2.62 (0.8-1.2)
== END 2024-02-24 12:37 | disposition home or self-care (01) ==
LOC: LAB 12:40
PROVIDERS: PCP Family Medicine; Visit Provider Internal Medicine Cardiovascular Disease
DX: Z95.2 Presence of prosthetic heart valve (principal); Z95.4 Presence of other heart-valve replacement; I97.89 Other postprocedural complications and disorders of the circulatory system, not elsewhere classified; I48.91 Unspecified atrial fibrillation
CPT/HCPCS: 36415; 85610

== ENCOUNTER 2024-03-10 10:03 | Outpatient (CLI) | payer MEDICARE, SELFPAY ==
[2024-03-10 10:45] LABS: INR 3.08 (0.8-1.2)
== END 2024-03-10 10:04 | disposition home or self-care (01) ==
PROVIDERS: PCP Family Medicine; Visit Provider Internal Medicine Cardiovascular Disease
DX: Z95.2 Presence of prosthetic heart valve (principal)
CPT/HCPCS: 36415; 85610

== ENCOUNTER 2024-03-24 10:53 | Outpatient (CLI) | payer MEDICARE, SELFPAY | END 2024-03-24 10:54 | disposition home or self-care (01) | LOC: LAB 10:56 | PROVIDERS: PCP Family Medicine; Visit Provider Internal Medicine Cardiovascular Disease | DX: Z95.2 Presence of prosthetic heart valve (principal); Z95.4 Presence of other heart-valve replacement; I48.91 Unspecified atrial fibrillation | CPT/HCPCS: 36415; 85610 ==

== ENCOUNTER 2024-04-24 08:43 | Outpatient (CLI) | payer MEDICARE, SELFPAY ==
[2024-04-24 10:03] LABS: INR 2.47 (0.8-1.2)
== END 2024-04-24 08:44 | disposition home or self-care (01) ==
LOC: LAB 08:47
PROVIDERS: PCP Family Medicine; Visit Provider Internal Medicine Cardiovascular Disease
DX: Z95.2 Presence of prosthetic heart valve (principal); Z95.4 Presence of other heart-valve replacement; I97.190 Other postprocedural cardiac functional disturbances following cardiac surgery
CPT/HCPCS: 36415; 85610

== ENCOUNTER 2024-05-25 10:55 | Outpatient (CLI) | payer MEDICARE, SELFPAY ==
[2024-05-25 11:43] LABS: INR 2.67 (0.83-1.21); Prothrombin Time (Patient) 29.4 Seconds (12.0-15.1)
== END 2024-05-25 10:56 | disposition home or self-care (01) ==
LOC: LAB 10:58
PROVIDERS: PCP Family Medicine; Visit Provider Nurse Practitioner Family
DX: Z79.01 Long term (current) use of anticoagulants (principal); Z95.2 Presence of prosthetic heart valve
CPT/HCPCS: 36415; 85610

== ENCOUNTER 2024-07-10 10:12 | Outpatient (CLI) | payer MEDICARE, SELFPAY ==
[2024-07-10 10:54] LABS: INR 2.59 (0.83-1.21); Prothrombin Time (Patient) 28.8 Seconds (12.0-15.1)
== END 2024-07-10 10:13 | disposition home or self-care (01) ==
LOC: LAB 10:13
PROVIDERS: PCP Family Medicine; Visit Provider Nurse Practitioner Family
DX: Z79.01 Long term (current) use of anticoagulants (principal)
CPT/HCPCS: 36415; 85610

== ENCOUNTER 2024-08-14 11:19 | Outpatient (CLI) | payer MEDICARE, SELFPAY ==
[2024-08-14 12:30] LABS: INR 2.91 (0.8-1.2)
== END 2024-08-14 11:20 | disposition home or self-care (01) ==
LOC: LAB 11:20
PROVIDERS: PCP Family Medicine; Visit Provider Nurse Practitioner Family
DX: Z95.4 Presence of other heart-valve replacement (principal)
CPT/HCPCS: 85610

== ENCOUNTER → 2024-10-03 11:26 | Outpatient (BNVA) | payer MEDICARE, SELFPAY | PROVIDERS: PCP Family Medicine; Visit Provider Nurse Practitioner | DX: R05.9 Cough, unspecified (principal) | CPT/HCPCS: 87400; 87426 ==